=== PATIENT | female | born 1960 | race Two or more races ===

== ENCOUNTER 2019-12-25 11:01 | Outpatient (REF) | payer OTHER, SELFPAY ==
[2019-12-25 14:10] LABS: Estimated Average Glucose 237 mg/dL; Hemoglobin A1c % 9.9 %
[2019-12-25 14:48] LABS: Alanine Aminotransferase 23 U/L (0-31); Anion Gap 14 (12-20); Aspartate Amino Transferase 19 U/L (5-31); Blood Urea Nitrogen 9 mg/dL (9-16); Calcium 9.4 mg/dL (8.4-10.2); Carbon Dioxide 29 mmol/L (22-29); Chloride 101 mmol/L (96-108); Cholesterol 190 mg/dL; Estimated Glomerular Filt Rate > 60; Glucose Fasting 94 mg/dL (60-99); HDL Cholesterol 39 mg/dL; LDL Cholesterol Calculated 106 mg/dl; Potassium 4.1 mmol/l (3.3-5.1); Sodium 140 mmol/L (135-145); Triglycerides 229 mg/dL
[2019-12-25 14:52] LABS: Vitamin D 25-OH Total 38.4 ng/mL (>30)
== END 2019-12-25 11:02 | disposition home or self-care (01) ==
LOC: HO.HMGCLDS 11:01
PROVIDERS: PCP Internal Medicine; Visit Provider Internal Medicine
DX: K21.9 Gastro-esophageal reflux disease without esophagitis (principal); E11.65 Type 2 diabetes mellitus with hyperglycemia; E78.5 Hyperlipidemia, unspecified; E55.9 Vitamin D deficiency, unspecified; Z79.4 Long term (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 of insulin
CPT/HCPCS: 80048; 80061; 82306; 83036; 84450; 84460

== ENCOUNTER 2020-03-19 13:59 | Outpatient (REF) | payer OTHER, SELFPAY ==
--- NOTE | ~2020-03-19 | MM_ITS ---
EXAMINATION: MM SCREENING DIGITAL BREAST TOMOSYNTHESIS, BILATERAL CLINICAL INFORMATION: Screening. Asymptomatic. Remote history breast surgery (1989 or 1990). No family history breast cancer. The lifetime risk of breast cancer based on the Tyrer-Cuzick Model is 10%. COMPARISON: Mammography: 09/11/2018, 07/03/2016, 06/01/2015 TECHNIQUE: Digital breast tomosynthesis is performed in both the craniocaudal and mediolateral oblique views along with computer-aided detection (CAD). Synthesized 2D images are generated from the tomosynthesis. FINDINGS: There are scattered areas of fibroglandular density (ACR BI-RADS breast composition Category b). There are no significant masses, abnormal calcifications, or other abnormalities. The axilla and skin contours are unremarkable. MM/MM tomosynthesis screening BI IMPRESSION: No mammographic evidence of malignancy. ASSESSMENT: BI-RADS 1: Negative RECOMMENDATION: Routine annual mammography screening. This patient's information was entered into a reminder system with a target due date for their next mammogram.
== END 2020-03-19 14:00 | disposition home or self-care (01) ==
LOC: HO.MAMMO 13:59
PROVIDERS: PCP Internal Medicine; Visit Provider Internal Medicine
DX: Z12.31 Encounter for screening mammogram for malignant neoplasm of breast (principal)
CPT/HCPCS: 77063; 77067

== ENCOUNTER 2020-04-08 11:26 | Outpatient (REF) | payer OTHER, SELFPAY ==
[2020-04-08 14:05] LABS: Estimated Average Glucose 240 mg/dL
[2020-04-08 14:35] LABS: Alanine Aminotransferase 20 U/L (0-31); Anion Gap 12 (12-20); Aspartate Amino Transferase 17 U/L (5-31); Blood Urea Nitrogen 9 mg/dL (9-16); Calcium 10.4 mg/dL (8.4-10.2); Carbon Dioxide 32 mmol/L (22-29); Chloride 99 mmol/L (96-108); Cholesterol 190 mg/dL; Estimated Glomerular Filt Rate > 60; Glucose Fasting 182 mg/dL (60-99); HDL Cholesterol 37 mg/dL; LDL Cholesterol Calculated 110 mg/dl; Potassium 4.3 mmol/L (3.3-5.1); Sodium 139 mmol/L (135-145); Triglycerides 217 mg/dL
[2020-04-08 14:56] LABS: Vitamin D 25-OH Total 43.1 ng/mL (>30)
[2020-04-08 15:30] LABS: Creatinine Urine 155.18 mg/dL; Microalbum/Creatinine Ratio Ur 66.3 ug/mg cr
== END 2020-04-08 11:27 | disposition home or self-care (01) ==
LOC: HO.HMGCLDS 11:26
PROVIDERS: PCP Internal Medicine; Visit Provider Internal Medicine
DX: E55.9 Vitamin D deficiency, unspecified (principal); E11.65 Type 2 diabetes mellitus with hyperglycemia; E78.2 Mixed hyperlipidemia; I10 Essential (primary) hypertension; Z78.0 Asymptomatic menopausal state; Z79.4 Long term (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 of insulin
CPT/HCPCS: 36415; 80048; 80061; 82043; 82306; 83036; 84450; 84460

== ENCOUNTER → 2020-06-10 12:21 | Outpatient (BNVA) | payer OTHER, SELFPAY | PROVIDERS: PCP Internal Medicine; Visit Provider Internal Medicine ==

== ENCOUNTER 2020-07-08 13:37 | Outpatient (REF) | payer OTHER, SELFPAY ==
[2020-07-08 16:34] LABS: Estimated Average Glucose 192 mg/dL; Hemoglobin A1c % 8.3 %
[2020-07-08 16:53] LABS: Alanine Aminotransferase 22 U/L (0-31); Albumin Level 4.3 g/dL (3.5-5.0); Alkaline Phosphatase 67 U/L (39-117); Anion Gap 13 (12-20); Aspartate Amino Transferase 15 U/L (5-31); Bilirubin Total 0.3 mg/dL (0.0-1.0); Blood Urea Nitrogen 10 mg/dL (9-16); Calcium 9.6 mg/dL (8.4-10.2); Carbon Dioxide 29 mmol/L (22-29); Chloride 102 mmol/L (96-108); Cholesterol 132 mg/dL; Estimated Glomerular Filt Rate > 60; Glucose Fasting 73 mg/dL (60-99); HDL Cholesterol 39 mg/dL; LDL Cholesterol Calculated 64 mg/dl; Phosphorus 3.7 mg/dL (2.7-4.5); Potassium 4.3 mmol/L (3.3-5.1); Sodium 140 mmol/L (135-145); Total Protein 7.4 g/dL (6.5-8.0); Triglycerides 146 mg/dL
[2020-07-08 17:07] LABS: Free T4 (Free Thyroxine) 0.79 ng/dL (0.71-1.85)
[2020-07-08 17:09] LABS: Thyroid Stimulating Hormone 2.05 uIU/mL (0.32-4.0); Vitamin D 25-OH Total 31.6 ng/mL (>30)
[2020-07-09 09:31] LABS: Calcium, Ionized 5.1 mg/dL (4.8-5.6)
[2020-07-09 22:06] LABS: Prot Elec - Albumin 4.1 g/dL (3.8-4.8); Prot Elec - Alpha1 0.3 g/dL (0.2-0.3); Prot Elec - Alpha2 0.7 g/dL (0.5-0.9); Prot Elec - Beta 1 0.5 g/dL (0.4-0.6); Prot Elec - Beta 2 0.4 g/dL (0.2-0.5); Prot Elec - Gamma 1.2 g/dL (0.8-1.7); Prot Elec - Total Protein 7.2 g/dL (6.1-8.1)
[2020-07-10 10:36] LABS: Calcium (PTHI) 9.4 mg/dL (8.6-10.4); PTHI 45 pg/mL (14-64)
== END 2020-07-08 13:38 | disposition home or self-care (01) ==
LOC: HO.HMGCLDS 13:37
PROVIDERS: PCP Internal Medicine; Visit Provider Internal Medicine
DX: E83.52 Hypercalcemia (principal); I10 Essential (primary) hypertension; E11.65 Type 2 diabetes mellitus with hyperglycemia; E78.2 Mixed hyperlipidemia; E55.9 Vitamin D deficiency, unspecified; Z79.4 Long term (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 of insulin; Z78.0 Asymptomatic menopausal state
CPT/HCPCS: 36415; 80048; 80053; 80061; 82306; 82330; 83036; 83970; 84100; 84155; 84165; 84439; 84443

== ENCOUNTER → 2020-08-26 14:27 | Outpatient (BNVA) | payer OTHER, SELFPAY | PROVIDERS: PCP Internal Medicine; Visit Provider Internal Medicine | DX: E11.65 Type 2 diabetes mellitus with hyperglycemia (principal); E78.5 Hyperlipidemia, unspecified; E55.9 Vitamin D deficiency, unspecified; E83.52 Hypercalcemia; I10 Essential (primary) hypertension; Z79.4 Long term (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 of insulin | CPT/HCPCS: 82947; 99212 ==

== ENCOUNTER 2020-09-15 12:59 | Outpatient (REF) | payer OTHER, SELFPAY ==
--- NOTE | ~2020-09-15 | US_ITS ---
EXAMINATION: US THYROID CLINICAL INFORMATION: Nontoxic goiter. COMPARISON: None TECHNIQUE: Linear transducer grayscale and color Doppler examination with attention to the region of the thyroid. FINDINGS: SIZE: Measurements of the thyroid lobes and nodules are given in sagittal, anteroposterior and transverse dimensions respectively. Right Thyroid Lobe: 3.58 x 1.24 x 1.68 cm, volume 3.91 mL. Parenchyma: The gland echotexture is homogeneous. Thyroid vascularity is normal. Left Thyroid Lobe: 3.18 x 0.96 x 1.42 cm, volume 2.27 mL. Parenchyma: The gland echotexture is homogeneous. Thyroid vascularity is normal. Isthmus: 0.36 cm in maximum AP dimension. Estimated total number of nodules greater than or equal to 1 cm: 0. Vice Chancellor nodules are described as follows: There are no nodules visualized. NODES: No lymphadenopathy is seen in the tissue surrounding the thyroid gland. US/US thyroid IMPRESSION: The thyroid gland is normal in size and is homogeneous in texture. No focal lesion is seen. ACR TI-RADS RECOMMENDATION REFERENCE: Ultrasound-guided fine-needle aspiration, followup ultrasound, no further follow up. * TR1 (0 point) and TR 2 (2 points): No FNA or follow up * TR3 (3 points): FNA if more than or equal to 2.5 cm in maximum dimension, followup ultrasound in 1, 3 and 5 years if 1.5 to 2.4 cm in maximum dimension. * TR4 (4-6 points): FNA if more than or equal to 1.5 cm in maximum dimension, followup ultrasound in 1, 2, 3 and 5 years if 1 to 1.4 cm in maximum dimension. * TR5 (more than or equal to 7 points): FNA if more than or equal to 1 cm in maximum dimension, followup ultrasound every year for 5 years if 0.5 to 0.9 cm in maximum dimension. * TR3, TR4 or TR5 nodules that are below the size threshold for follow up receive no follow up.
== END 2020-09-15 13:00 | disposition home or self-care (01) ==
LOC: HO.HMGCX 12:59
PROVIDERS: Visit Provider Internal Medicine
DX: E04.9 Nontoxic goiter, unspecified (principal)
CPT/HCPCS: 76536

== ENCOUNTER 2020-10-13 13:15 | Outpatient (REF) | payer MEDICAID, SELFPAY ==
[2020-10-13 14:24] LABS: Estimated Average Glucose 169 mg/dL; Hemoglobin A1c % 7.5 %
[2020-10-13 14:37] LABS: Alanine Aminotransferase 20 U/L (0-31); Anion Gap 11 (12-20); Aspartate Amino Transferase 17 U/L (5-31); Blood Urea Nitrogen 10 mg/dL (9-16); Calcium 9.9 mg/dL (8.4-10.2); Carbon Dioxide 29 mmol/L (22-29); Chloride 104 mmol/L (96-108); Cholesterol 131 mg/dL; Estimated Glomerular Filt Rate > 60; Glucose Fasting 98 mg/dL (60-99); HDL Cholesterol 38 mg/dL; LDL Cholesterol Calculated 74 mg/dl; Potassium 4.1 mmol/L (3.3-5.1); Sodium 140 mmol/L (135-145); Triglycerides 99 mg/dL
[2020-10-13 14:58] LABS: Vitamin D 25-OH Total 32.5 ng/mL (>30)
== END 2020-10-13 13:16 | disposition home or self-care (01) ==
LOC: HO.HMGCLDS 13:15
PROVIDERS: PCP Internal Medicine; Visit Provider Internal Medicine
DX: E11.29 Type 2 diabetes mellitus with other diabetic kidney complication (principal); E11.319 Type 2 diabetes mellitus with unspecified diabetic retinopathy without macular edema; E11.65 Type 2 diabetes mellitus with hyperglycemia; E78.2 Mixed hyperlipidemia; I10 Essential (primary) hypertension; R80.9 Proteinuria, unspecified; E55.9 Vitamin D deficiency, unspecified; Z78.0 Asymptomatic menopausal state; Z79.4 Long term (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 of insulin
CPT/HCPCS: 36415; 80048; 80061; 82306; 83036; 84450; 84460

== ENCOUNTER 2020-12-30 08:10 | Outpatient (REF) | payer OTHER, SELFPAY ==
[2020-12-30 12:10] LABS: Estimated Average Glucose 180 mg/dL; Hemoglobin A1c % 7.9 %
[2020-12-30 13:04] LABS: Creatinine Urine 72.93 mg/dL; Microalbum/Creatinine Ratio Ur 16.4 ug/mg cr
[2020-12-30 13:06] LABS: Alanine Aminotransferase 17 U/L (0-31); Albumin Level 4.4 g/dL (3.5-5.0); Alkaline Phosphatase 86 U/L (39-117); Anion Gap 14 (12-20); Aspartate Amino Transferase 14 U/L (5-31); Bilirubin Total 0.3 mg/dL (0.0-1.0); Blood Urea Nitrogen 14 mg/dL (9-16); Calcium 9.7 mg/dL (8.4-10.2); Carbon Dioxide 26 mmol/L (22-29); Chloride 105 mmol/L (96-108); Cholesterol 104 mg/dL; Estimated Glomerular Filt Rate > 60; Glucose Random 112 mg/dL (60-115); HDL Cholesterol 35 mg/dL; LDL Cholesterol Calculated 51 mg/dl; Potassium 4.1 mmol/L (3.3-5.1); Sodium 141 mmol/L (135-145); Total Protein 7.4 g/dL (6.5-8.0); Triglycerides 93 mg/dL
[2020-12-31 10:17] LABS: LDL Cholesterol Direct 44 mg/dL (<100)
== END 2020-12-30 08:11 | disposition home or self-care (01) ==
LOC: HO.HMGCLDS 08:10
PROVIDERS: PCP Internal Medicine; Visit Provider Internal Medicine
DX: E11.65 Type 2 diabetes mellitus with hyperglycemia (principal); E11.319 Type 2 diabetes mellitus with unspecified diabetic retinopathy without macular edema; E11.40 Type 2 diabetes mellitus with diabetic neuropathy, unspecified; E11.21 Type 2 diabetes mellitus with diabetic nephropathy; E78.5 Hyperlipidemia, unspecified; E55.9 Vitamin D deficiency, unspecified; E83.52 Hypercalcemia; I10 Essential (primary) hypertension; Z79.899 Other long term (current) drug therapy; Z79.4 Long term (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 of insulin
CPT/HCPCS: 36415; 80053; 80061; 82043; 82947; 83036; 83721; 99212

== ENCOUNTER 2021-03-24 00:56 | Emergency (ER) | payer OTHER, SELFPAY ==
--- NOTE | ~2021-03-24 | XR_ITS ---
EXAMINATION: XR CHEST CLINICAL INFORMATION: Chest pain COMPARISON: None TECHNIQUE: Frontal view of the chest was obtained. FINDINGS: The heart and pulmonary vessels appear unremarkable. No infiltrates or effusions are seen. There is a rounded opacity seen at the right apex which may be bony however a 1 cm sized pulmonary nodule cannot be excluded. This overlies the inferior aspect of the right first rib as well as the posterior fourth rib. XR/XR chest 1V IMPRESSION: Right apical nodular density. I suspect that this is not a true pulmonary nodule but this cannot be excluded. An elective CT scan of the chest could be performed for further evaluation
[2021-03-24 00:57] VITALS: BP 148/79; PULSE 91; RESP 16; TEMP 36.7; O2SAT 97; BMI 29.6
[2021-03-24 01:16] LABS: Appearance Urine CLEAR; Color Urine YELLOW; Glucose Urine UA NEG (NEG); Leukocyte Esterase Urine NEG (NEG); Nitrite Urine NEG (NEG); Urine Blood NEG (NEG); Urine Ketones NEG (NEG); Urine Protein NEG (NEG-TRACE)
--- NOTE | 2021-03-24 01:22 | ED_ITS ---
HPI - Abdominal Pain General Chief Complaint: Abdominal Pain Stated Complaint: R side of body pain x2 wks Time Seen by Provider: 03/24/21 01:06 Source: patient Mode of arrival: ambulatory Limitations: no limitations History of Present Illness MD elicited complaint: other (R posterior back pain) Pertinent past history: none Onset (ago): week(s) (2) Pain Consistency: constant Location: other (R posterior back paraspinal) Severity: moderate Quality: sharp Radiation: none Migration to: no migration Exacerbating factors: other (movement, deep breathing) Relieving factors: nothing Associated symptoms: other (hurts to breathe) Related Data Home Medications Medication Instructions Recorded Confirmed fluocinonide 0.05 % topical TOPICAL 12/26/19 12/30/20 ointment Previous Rx's Medication Instructions Recorded atorvastatin 40 mg tablet 40 mg PO DAILY 30 Days #30 tab 06/10/20 flash glucose scanning reader #1 ea 06/10/20 (FreeStyle [place] 2 [place]) flash glucose sensor (FreeStyle #2 ea 06/10/20 Kwesi 2 Sensor) lisinopril 2.5 mg tablet 2.5 mg PO DAILY 30 Days #30 tab 06/10/20 insulin glargine 100 unit/mL (3 44 unit (0.44 mL) SUBCUT QPM #15 09/13/20 mL) subcutaneous pen (Lantus cap Solostar U-100 Insulin) metformin 1,000 mg tablet 1,000 mg PO BID #60 tab 11/10/20 insulin lispro 100 unit/mL See Rx Instructions SUBCUT TID #15 11/30/20 subcutaneous pen (Humalog KwikPen ml (U-100) Insulin) ibuprofen 800 mg tablet 800 mg PO Q8H PRN #30 tab 12/01/20 blood sugar diagnostic (FreeStyle #100 ea 12/03/20 Lite Strips) pen needle, diabetic 32 gauge x See Rx Instructions .ROUTE QID 01/11/21 (UltiCare Pen Needle) #120 ea ketoconazole 2 % topical cream 1 appl TOPICAL DAILY 10 Days #60 g 02/08/21 omeprazole 40 mg capsule,delayed 40 mg PO DAILY #90 ea 02/23/21 release blood-glucose meter (FreeStyle #1 ea 03/14/21 [place] Lite) cyclobenzaprine 10 mg tablet 10 mg PO TID PRN #14 tab 03/24/21 lidocaine 5 % topical patch 1 patch TOPICAL DAILY #30 ea 03/24/21 Allergies Allergy/AdvReac Type Severity Reaction Status Date / Time No Known Allergies Allergy Verified 12/30/20 15:08 Review of Systems Review of Systems Constitutional : No Weight loss, No Fever, No Chills, ENT/Mouth : No Hearing loss, No Ear Pain, No Nasal Congestion, No Sinus Pain, No Hoarseness, No sore throat, No Rhinorrhea, No Swallowing Difficulty Cardiovascular : No Chest Pain, No SOB Respiratory : No Cough, No Dyspnea Gastrointestinal : No Nausea, No Vomiting, No Diarrhea, No abdominal Pain, No Hematochezia, No Melena Genitourinary : No Dysuria, No Urinary Frequency, No Hematuria, No Urinary Incontinence, Musculoskeletal : positive back pain Skin : No Skin Lesions, No rash Neuro : No Weakness, No Numbness, No Paresthesias, no loss of bowel or bladder incontinence, no saddle anesthesia All other systems reviewed and are negative Physical Exam Vital Signs: Vital Signs: Last Vital Signs Temp 98.2 F 03/24/21 02:09 Pulse 82 03/24/21 02:09 Resp 18 03/24/21 02:09 BP 118/59 L 03/24/21 02:09 Pulse Ox 96 03/24/21 02:09 BMI result Body Mass Index 29.6 Appearance: Alert. Oriented X3. No acute distress. Eyes: Pupils equal, round and reactive to light. ENT: Pharynx normal. Neck: Normal inspection. Neck supple. CVS: Normal heart rate and rhythm. Pulses normal. Respiratory: No respiratory distress. Breath sounds normal. Abdomen: Soft and nontender. Back: ttp along R mid thoracic paraspinal muscles Skin: Skin warm and dry. Normal skin color. Normal skin turgor. Extremities: No lower extremity edema. No calf ttp Neuro: Oriented X 3. No motor deficit. No sensory deficit. Course Course Course Narrative: stable for DC at this time negative ddimer nonischemic EKG MDM - Abdominal Pain MDM Narrative Medical decision making narrative: 61 yo female with hx of HTN, HLD, DM, lumbago, GERD, here with c/o R thoracic back pain hurts to move and get up but also hurts to breathe at this time no known trauma will obtain labs, EKG, CXR, ddimer to r/o PE though low probability. She is NV intact distally no rash noted. Dispo per results and findings. Lab Data Result diagrams: 03/24/21 01:44 03/24/21 01:45 Labs: Lab Results 03/24/21 03/24/21 03/24/21 Range/Units 01:10 01:44 01:44 WBC 12.2 H (4.8-10.8) X10*3/uL RBC 4.10 L (4.20-5.50) X10*6/uL Hgb 10.0 L (12.0-16.0) g/dl Hct 32.9 L (37.0-47.0) % MCV 80.2 (80.0-98.0) fL MCH 24.4 L (27.0-33.0) pg MCHC 30.4 L (31.0-35.0) g/dl RDW 17.1 H (11.0-16.0) % Plt Count 360 (160-400) X10*3/uL MPV 8.8 L (9.4-12.3) fL Immature Gran % (Auto) 0.3 (0.0-0.4) % Neut % (Auto) 62.0 (45-73) % Lymph % (Auto) 30.4 (20-40) % [place] % (Auto) 6.3 (2-11) % Eos % (Auto) 0.7 (0-4) % Baso % (Auto) 0.3 (0-2) % Lymph # (Auto) 3.7 (1.2-4.9) X10*3/uL [place] # (Auto) 0.8 (0.1-1.2) X10*3/uL Eos # (Auto) 0.1 (0.0-0.4) X10*3/uL Baso # (Auto) 0.0 (0.0-0.2) X10*3/uL Abs Immat Gran (auto) 0.04 H (0.00-0.03) X10*3/uL Absolute Neuts (auto) 7.5 (2.0-8.3) x10*3/uL Absolute Nucleated RBC 0.000 (0.0-0.012) X10*3/uL Nucleated RBC % (auto) 0.0 (0.0-0.2) /100WBC D-Dimer High Sensitivty < 150 NG/ML Sodium (135-145) mmol/L Potassium (3.3-5.1) mmol/L Chloride (96-108) mmol/L Carbon Dioxide (22-29) mmol/L Anion Gap (12-20) BUN (9-16) mg/dL Creatinine (0.5-1.4) mg/dL Estim Creat Clear Calc Estimated GFR Random Glucose (60-115) mg/dL Calcium (8.4-10.2) mg/dL Urine Color YELLOW Urine Appearance CLEAR Urine pH 6.0 (5.0-8.0) Ur Specific [place] 1.020 (1.005-1.025) Urine Protein NEG (NEG-TRACE) MG/DL Urine Glucose (UA) NEG (NEG) MG/DL Urine Ketones NEG (NEG) MG/DL Urine Blood NEG (NEG) Urine Nitrite NEG (NEG) Ur Leukocyte Esterase NEG (NEG) 03/24/21 Range/Units 01:45 WBC (4.8-10.8) X10*3/uL RBC (4.20-5.50) X10*6/uL Hgb (12.0-16.0) g/dl Hct (37.0-47.0) % MCV (80.0-98.0) fL MCH (27.0-33.0) pg MCHC (31.0-35.0) g/dl RDW (11.0-16.0) % Plt Count (160-400) X10*3/uL MPV (9.4-12.3) fL Immature Gran % (Auto) (0.0-0.4) % Neut % (Auto) (45-73) % Lymph % (Auto) (20-40) % [place] % (Auto) (2-11) % Eos % (Auto) (0-4) % Baso % (Auto) (0-2) % Lymph # (Auto) (1.2-4.9) X10*3/uL [place] # (Auto) (0.1-1.2) X10*3/uL Eos # (Auto) (0.0-0.4) X10*3/uL Baso # (Auto) (0.0-0.2) X10*3/uL Abs Immat Gran (auto) (0.00-0.03) X10*3/uL Absolute Neuts (auto) (2.0-8.3) x10*3/uL Absolute Nucleated RBC (0.0-0.012) X10*3/uL Nucleated RBC % (auto) (0.0-0.2) /100WBC D-Dimer High Sensitivty NG/ML Sodium 140 (135-145) mmol/L Potassium 4.0 (3.3-5.1) mmol/L Chloride 104 (96-108) mmol/L Carbon Dioxide 27 (22-29) mmol/L Anion Gap 13 (12-20) BUN 18 H (9-16) mg/dL Creatinine 0.72 (0.5-1.4) mg/dL Estim Creat Clear Calc 95.5 Estimated GFR > 60 Random Glucose 106 (60-115) mg/dL Calcium 10.2 (8.4-10.2) mg/dL Urine Color Urine Appearance Urine pH (5.0-8.0) Ur Specific [place] (1.005-1.025) Urine Protein (NEG-TRACE) MG/DL Urine Glucose (UA) (NEG) MG/DL Urine Ketones (NEG) MG/DL Urine Blood (NEG) Urine Nitrite (NEG) Ur Leukocyte Esterase (NEG) ECG Data Attestation: I personally reviewed and interpreted this ECG as follows: ECG interpretation date: 03/24/21 ECG interpretation time: 01:48 Interpretation: Rate: 86 Rhythm: NSR [place]: normal Normal P waves. Normal ALFREDO. Normal QRS complex. ST T wave : no HERMINIO qTC: normal prior studies: no acute ischemia The study has been interpreted contemporaneously by me. . Discharge Plan Discharge Clinical Impression: Paraspinal muscle spasm Patient Disposition: Home, Self-Care Instructions: Muscle Spasm (ED) Additional Instructions: return to ED for any worsening symptoms or concerns IMPRESSION: Right apical nodular density. I suspect that this is not a true pulmonary nodule but this cannot be excluded. An elective CT scan of the chest could be performed for further evaluation Prescriptions: New cyclobenzaprine 10 mg tablet 10 mg PO TID PRN (Reason: muscle spasm) Qty: 14 0RF lidocaine 5 % adhesive patch,medicated 1 patch topical DAILY Qty: 30 0RF Rx Instructions: leave on most painful area for up to 12 hrs No Action Lantus Solostar U-100 Insulin 100 unit/mL (3 mL) insulin pen 44 unit subcut QPM Qty: 15 4RF Rx Instructions: send future refill request to Dr Hutchison who currently treats her DM metformin 1,000 mg tablet 1,000 mg PO BID Qty: 60 5RF insulin lispro [Humalog KwikPen Insulin] 100 unit/mL insulin pen See Rx Instructions subcut TID Qty: 15 4RF Rx Instructions: administer 12 units 3x per day before meals. ibuprofen 800 mg tablet 800 mg PO Q8H PRN (Reason: for pain) Qty: 30 0RF (DME) FreeStyle Lite Strips Strip See Rx Instructions .Route Qty: 100 11RF Rx Instructions: As directed to test blood sugar 3x/day pen needle, diabetic [UltiCare Pen Needle] 32 gauge x 5/32 needle See Rx Instructions .ROUTE QID Qty: 120 11RF Rx Instructions: use as directed QID , ac & HS 4 times a day; ketoconazole 2 % cream 1 appl topical DAILY 10 Days Qty: 60 0RF omeprazole 40 mg capsule,delayed release(DR/EC) 40 mg PO DAILY Qty: 90 0RF (DME) blood-glucose meter [FreeStyle [place] Lite] Kit See Rx Instructions .Route Qty: 1 0RF Rx Instructions: As directed to test blood sugar 3x/day fluocinonide 0.05 % ointment topical 0RF (DME) FreeStyle Kwesi 2 [place] Misc See Rx Instructions .ROUTE .MEDSUPPLY Qty: 1 0RF Rx Instructions: As directed (DME) FreeStyle Kwesi 2 Sensor Kit See Rx Instructions .ROUTE .MEDSUPPLY Qty: 2 11RF Rx Instructions: Once every 14 days lisinopril 2.5 mg tablet 2.5 mg PO DAILY 30 Days Qty: 30 11RF atorvastatin 40 mg tablet 40 mg PO DAILY 30 Days Qty: 30 11RF Referrals: Kim Reynoso MD [Primary Care Provider] - 2 days (your xray did have irregularity - outpatient chest CT scan though likely artifact (not real)) [facility] Past Medical History Attestation statement: The following information was validated with the patient. 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 Daughter No problems noted. Social History Social History Housing: House Alcohol intake: unknown Patient Tobacco Use Status: Never used Tobacco e-Cigarette/Vaping Use: Never Used Second Hand Smoke Exposure: No Use of substances other than those prescribed or required for medical reasons: No Patient : No Current occupational status: employed
--- NOTE | 2021-03-24 01:28 | ECG_ITS ---
Test Reason : Abdominal pain Blood Pressure : / mmHG Vent. Rate : 086 BPM Atrial Rate : 086 BPM P-R Int : 150 ms QRS Dur : 094 ms QT Int : 358 ms P-R-T Axes : 056 009 010 degrees QTc Int : 428 ms Normal sinus rhythm Cannot rule out Inferior infarct , age undetermined Abnormal ECG No previous ECGs available Referred By: Tonja Ribeiro Electronically Signed By:Jairon Hurd
[2021-03-24] MEDS: Lidocaine 4 % Patch ADH..PATCH 1 PATCH TRANSDERMA (01:47)
[2021-03-24 01:49] LABS: Basophils Percent Auto 0.3 % (0-2); Eosinophils Absolute Auto 0.1 X10*3/uL (0.0-0.4); Eosinophils Percent Auto 0.7 % (0-4); Hematocrit 32.9 % (37.0-47.0); Imm Gran Abs Auto 0.04 X10*3/uL (0.00-0.03); Imm Gran Pct Auto 0.3 % (0.0-0.4); Lymphocytes Absolute Auto 3.7 X10*3/uL (1.2-4.9); Lymphocytes Percent Auto 30.4 % (20-40); MANUAL DIFF FLAG NO; Mean Corpuscular HGB Conc 30.4 g/dl (31.0-35.0); Mean Corpuscular Hemoglobin 24.4 pg (27.0-33.0); Mean Corpuscular Volume 80.2 fL (80.0-98.0); Mean Platelet Volume 8.8 fL (9.4-12.3); Monocytes Absolute Auto 0.8 X10*3/uL (0.1-1.2); Monocytes Percent Auto 6.3 % (2-11); Neutrophils Absolute Auto 7.5 x10*3/uL (2.0-8.3); Platelet Count 360 X10*3/uL (160-400); Red Cell Distribution Width 17.1 % (11.0-16.0); White Blood Count 12.2 X10*3/uL (4.8-10.8)
[2021-03-24 02:00] LABS: D Dimer High Sensitivity < 150 NG/ML
[2021-03-24 02:04] LABS: Anion Gap 13 (12-20); Blood Urea Nitrogen 18 mg/dL (9-16); Calcium 10.2 mg/dL (8.4-10.2); Carbon Dioxide 27 mmol/L (22-29); Chloride 104 mmol/L (96-108); Creatinine Clr Calc Pharmacy 95.5; Estimated Glomerular Filt Rate > 60; Glucose Random 106 mg/dL (60-115); Sodium 140 mmol/L (135-145)
[2021-03-24 02:09] VITALS: BP 118/59; PULSE 82; RESP 18; TEMP 36.8; O2SAT 96
== END 2021-03-24 02:28 | disposition home or self-care (01) ==
LOC: HO.ED 02:16
PROVIDERS: Emergency Provider Emergency Medicine; PCP Internal Medicine
DX: R10.31 Right lower quadrant pain (principal); M54.50 Low back pain, unspecified; M62.838 Other muscle spasm; R07.81 Pleurodynia; Z79.899 Other long term (current) drug therapy
CPT/HCPCS: 36415; 71045; 80048; 81003; 85025; 85379; 93005; 99283; 99284

== ENCOUNTER 2021-04-20 12:31 | Outpatient (REF) | payer OTHER, SELFPAY ==
[2021-04-20 14:09] LABS: Estimated Average Glucose 180 mg/dL; Hemoglobin A1c % 7.9 %
[2021-04-20 14:21] LABS: Alanine Aminotransferase 24 U/L (0-31); Albumin Level 4.3 g/dL (3.5-5.0); Alkaline Phosphatase 67 U/L (39-117); Anion Gap 12 (12-20); Aspartate Amino Transferase 22 U/L (5-31); Bilirubin Total 0.4 mg/dL (0.0-1.0); Blood Urea Nitrogen 10 mg/dL (9-16); Carbon Dioxide 29 mmol/L (22-29); Chloride 105 mmol/L (96-108); Estimated Glomerular Filt Rate > 60; Glucose Random 88 mg/dL (60-115); Potassium 4.3 mmol/L (3.3-5.1); Sodium 142 mmol/L (135-145); Total Protein 7.5 g/dL (6.5-8.0)
== END 2021-04-20 12:32 | disposition home or self-care (01) ==
LOC: HO.HMGCLDS 12:31
PROVIDERS: PCP Internal Medicine; Visit Provider Internal Medicine
DX: E11.65 Type 2 diabetes mellitus with hyperglycemia (principal); Z79.4 Long term (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 of insulin
CPT/HCPCS: 36415; 80053; 83036

== ENCOUNTER → 2021-04-21 14:06 | Outpatient (BNVA) | payer OTHER, SELFPAY | PROVIDERS: PCP Internal Medicine; Visit Provider Nurse Practitioner Gerontology | DX: E11.65 Type 2 diabetes mellitus with hyperglycemia (principal); E78.5 Hyperlipidemia, unspecified; I10 Essential (primary) hypertension; E66.09 Other obesity due to excess calories; Z68.31 Body mass index [BMI] 31.0-31.9, adult; Z79.4 Long term (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 of insulin | CPT/HCPCS: 82947; 99212 ==

== ENCOUNTER 2021-05-19 07:48 | Outpatient (REF) | payer OTHER, SELFPAY ==
--- NOTE | ~2021-05-19 | MM_ITS ---
EXAMINATION: MM SCREENING DIGITAL BREAST TOMOSYNTHESIS, BILATERAL CLINICAL INFORMATION: Screening. Asymptomatic. Status post previous breast surgery. The lifetime risk of breast cancer based on the Tyrer-Cuzick Model is 5.7%. COMPARISON: Mammography: March 19, 2020 and studies dating back to April 12, 2013 TECHNIQUE: Digital breast tomosynthesis is performed in both the craniocaudal and mediolateral oblique views along with computer-aided detection (CAD). Synthesized 2D images are generated from the tomosynthesis. FINDINGS: There are scattered areas of fibroglandular density (ACR BI-RADS breast composition Category b). There are no new significant masses, abnormal calcifications, or other abnormalities. Region of stable architectural distortion about the superior aspect of the right breast is present and likely related to previous surgery. MM/MM tomosynthesis screening BI IMPRESSION: There are no significant changes from prior study. ASSESSMENT: BI-RADS 2: Benign RECOMMENDATION: Routine annual mammography screening. This patient's information was entered into a reminder system with a target due date for their next mammogram.
== END 2021-05-19 07:49 | disposition home or self-care (01) ==
LOC: HO.MAMMO 07:48
PROVIDERS: PCP Internal Medicine; Visit Provider Internal Medicine
DX: Z12.31 Encounter for screening mammogram for malignant neoplasm of breast (principal)
CPT/HCPCS: 77063; 77067

== ENCOUNTER 2021-07-21 08:37 | Outpatient (REF) | payer OTHER, SELFPAY ==
[2021-07-21 11:58] LABS: Creatinine Urine 27.21 mg/dL
== END 2021-07-21 08:38 | disposition home or self-care (01) ==
LOC: HO.HMGCLDS 08:37
PROVIDERS: Visit Provider Internal Medicine
DX: Z13.89 Encounter for screening for other disorder (principal)

== ENCOUNTER 2022-05-11 10:12 | Outpatient (REF) | payer OTHER, SELFPAY ==
[2022-05-11 11:12] LABS: MANUAL DIFF FLAG NO
[2022-05-11 11:23] LABS: Basophils Absolute Auto 0.1 X10*3/uL (0.0-0.2); Basophils Percent Auto 0.4 % (0-2); Eosinophils Absolute Auto 0.1 X10*3/uL (0.0-0.4); Eosinophils Percent Auto 0.5 % (0-4); Hematocrit 34.6 % (37.0-47.0); Hemoglobin 10.1 g/dl (12.0-16.0); Imm Gran Abs Auto 0.05 X10*3/uL (0.00-0.03); Imm Gran Pct Auto 0.4 % (0.0-0.4); Lymphocytes Percent Auto 16.3 % (20-40); Mean Corpuscular HGB Conc 29.2 g/dl (31.0-35.0); Mean Corpuscular Hemoglobin 22.9 pg (27.0-33.0); Mean Corpuscular Volume 78.5 fL (80.0-98.0); Mean Platelet Volume 9.4 fL (9.4-12.3); Monocytes Absolute Auto 0.6 X10*3/uL (0.1-1.2); Monocytes Percent Auto 4.9 % (2-11); Neutrophils Absolute Auto 9.3 x10*3/uL (2.0-8.3); Neutrophils Percent Auto 77.5 % (45-73); Platelet Count 403 X10*3/uL (160-400); Red Blood Count 4.41 X10*6/uL (4.20-5.50); Red Cell Distribution Width 18.6 % (11.0-16.0)
[2022-05-11 11:58] LABS: Alanine Aminotransferase 14 U/L (0-31); Anion Gap 16 (12-20); Aspartate Amino Transferase 11 U/L (5-31); Blood Urea Nitrogen 11 mg/dL (9-16); Calcium 9.5 mg/dL (8.4-10.2); Carbon Dioxide 27 mmol/L (22-29); Chloride 105 mmol/L (96-108); Cholesterol 120 mg/dL; Estimated Glomerular Filt Rate > 60; Glucose Fasting 72 mg/dL (60-99); HDL Cholesterol 33 mg/dL; LDL Cholesterol Calculated 58 mg/dl; Potassium 3.8 mmol/L (3.3-5.1); Sodium 144 mmol/L (135-145); Triglycerides 146 mg/dL
[2022-05-11 12:01] LABS: Vitamin D 25-OH Total 18.1 ng/mL (>30)
[2022-05-11 12:04] LABS: Creatinine Urine 196.07 mg/dL; Microalbum/Creatinine Ratio Ur 21.9 ug/mg cr
== END 2022-05-11 10:13 | disposition home or self-care (01) ==
LOC: HO.HMGCLDS 10:12
PROVIDERS: PCP Internal Medicine; Visit Provider Internal Medicine
DX: E78.5 Hyperlipidemia, unspecified (principal); I10 Essential (primary) hypertension; E11.65 Type 2 diabetes mellitus with hyperglycemia; E66.09 Other obesity due to excess calories; Z68.31 Body mass index [BMI] 31.0-31.9, adult; Z78.0 Asymptomatic menopausal state; Z79.4 Long term (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 of insulin
CPT/HCPCS: 36415; 80048; 80061; 82043; 82306; 84450; 84460; 85025

== ENCOUNTER 2022-06-29 10:44 | Outpatient (REF) | payer OTHER, SELFPAY ==
--- NOTE | ~2022-06-29 | MM_ITS ---
EXAMINATION: MM SCREENING DIGITAL BREAST TOMOSYNTHESIS, BILATERAL CLINICAL INFORMATION: Screening. Asymptomatic. The lifetime risk of breast cancer based on the Tyrer-Cuzick Model is 6%. COMPARISON: Mammography: May 19, 2021 and studies dating back to June 01, 2015 TECHNIQUE: Digital breast tomosynthesis is performed in both the craniocaudal and mediolateral oblique views along with computer-aided detection (CAD). Synthesized 2D images are generated from the tomosynthesis. FINDINGS: There are scattered areas of fibroglandular density (ACR BI-RADS breast composition Category b). There are no significant masses, abnormal calcifications, or other abnormalities. MM/MM tomosynthesis screening BI IMPRESSION: No significant changes from prior exam. ASSESSMENT: BI-RADS 1: Negative RECOMMENDATION: Routine annual mammography screening. This patient's information was entered into a reminder system with a target due date for their next mammogram.
== END 2022-06-29 10:45 | disposition home or self-care (01) ==
LOC: HO.MAMMO 10:44
PROVIDERS: PCP Internal Medicine; Visit Provider Internal Medicine
DX: Z12.31 Encounter for screening mammogram for malignant neoplasm of breast (principal)
CPT/HCPCS: 77063; 77067

== ENCOUNTER 2022-07-26 15:05 | Outpatient (REF) | payer OTHER, SELFPAY ==
[2022-07-26 17:15] LABS: Estimated Average Glucose 186 mg/dL; Hemoglobin A1c % 8.1 %
[2022-07-26 17:23] LABS: Alanine Aminotransferase 16 U/L (0-31); Anion Gap 12 (12-20); Aspartate Amino Transferase 16 U/L (5-31); Blood Urea Nitrogen 14 mg/dL (9-16); Calcium 9.8 mg/dL (8.4-10.2); Carbon Dioxide 30 mmol/L (22-29); Chloride 103 mmol/L (96-108); Cholesterol 110 mg/dL; Estimated Glomerular Filt Rate > 60; Glucose Fasting 81 mg/dL (60-99); HDL Cholesterol 36 mg/dL; LDL Cholesterol Calculated 56 mg/dl; Potassium 3.6 mmol/L (3.3-5.1); Sodium 141 mmol/L (135-145); Triglycerides 94 mg/dL
== END 2022-07-26 15:06 | disposition home or self-care (01) ==
LOC: HO.HMGCLDS 15:05
PROVIDERS: PCP Internal Medicine; Visit Provider Internal Medicine
DX: E11.29 Type 2 diabetes mellitus with other diabetic kidney complication (principal); E11.319 Type 2 diabetes mellitus with unspecified diabetic retinopathy without macular edema; E11.65 Type 2 diabetes mellitus with hyperglycemia; E66.09 Other obesity due to excess calories; Z68.31 Body mass index [BMI] 31.0-31.9, adult; E78.5 Hyperlipidemia, unspecified; I10 Essential (primary) hypertension; R80.9 Proteinuria, unspecified; Z79.4 Long term (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 of insulin
CPT/HCPCS: 36415; 80048; 80061; 83036; 84450; 84460

== ENCOUNTER 2022-08-09 13:26 | Outpatient (REF) | payer OTHER, SELFPAY ==
[2022-08-09 18:17] LABS: Creatinine Urine 116.06 mg/dL; Microalbum/Creatinine Ratio Ur 23.2 ug/mg cr
== END 2022-08-09 13:27 | disposition home or self-care (01) ==
LOC: HO.HMGCLNP 13:26
PROVIDERS: PCP Internal Medicine; Visit Provider Internal Medicine
DX: E11.29 Type 2 diabetes mellitus with other diabetic kidney complication (principal); E11.65 Type 2 diabetes mellitus with hyperglycemia; E11.319 Type 2 diabetes mellitus with unspecified diabetic retinopathy without macular edema; E66.09 Other obesity due to excess calories; E78.5 Hyperlipidemia, unspecified; I10 Essential (primary) hypertension; R80.9 Proteinuria, unspecified; Z79.4 Long term (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 of insulin; Z68.31 Body mass index [BMI] 31.0-31.9, adult
CPT/HCPCS: 82043

== ENCOUNTER 2022-10-25 10:28 | Outpatient (REF) | payer OTHER, SELFPAY ==
[2022-10-25 13:39] LABS: Estimated Average Glucose 180 mg/dL; Hemoglobin A1c % 7.9 % (<6.0)
[2022-10-25 13:45] LABS: Alanine Aminotransferase 14 U/L (0-31); Anion Gap 13 (12-20); Aspartate Amino Transferase 15 U/L (5-31); Blood Urea Nitrogen 12 mg/dL (9-16); Calcium 9.7 mg/dL (8.4-10.2); Carbon Dioxide 28 mmol/L (22-29); Chloride 104 mmol/L (96-108); Cholesterol 112 mg/dL (<200); Estimated Glomerular Filt Rate > 60; Glucose Fasting 147 mg/dL (60-99); HDL Cholesterol 36 mg/dL (>40); LDL Cholesterol Calculated 61 mg/dL (<100); Sodium 141 mmol/L (135-145); Triglycerides 78 mg/dL (<150)
== END 2022-10-25 10:29 | disposition home or self-care (01) ==
LOC: HO.HMGCLDS 10:28
PROVIDERS: PCP Internal Medicine; Visit Provider Internal Medicine
DX: E11.319 Type 2 diabetes mellitus with unspecified diabetic retinopathy without macular edema (principal); E11.29 Type 2 diabetes mellitus with other diabetic kidney complication; R80.9 Proteinuria, unspecified; Z79.4 Long term (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 of insulin
CPT/HCPCS: 36415; 80048; 80061; 83036; 84450; 84460

== ENCOUNTER 2022-11-01 13:30 | Outpatient (AMB) | payer OTHER, SELFPAY ==
--- NOTE | 2022-11-01 14:08 | A.OFFPC_ITS ---
Vital Signs 11/01/22 14:15 Height 5 ft 8 in Weight 203 lb BMI 30.9 BP 120/70 Blood Pressure Location Rt brachial Position Sitting Pulse 79 Pulse Source Pulse Oximeter Pulse Oximetry (%) 97 Oxygen Delivery Method Room Air Intake Visit Reasons: f/u labs DM Intake Note: Pt is here today for her DM f/u Allergies No Known Allergies Allergy (Verified 11/06/22 02:47) Medication List - Last Reconciled 11/01/22 by Kim Reynoso MD atorvastatin 40 mg PO DAILY blood sugar diagnostic (FreeStyle Lite Strips) As directed to test blood sugar 3x/day blood-glucose meter (FreeStyle [place] Lite kit) As directed to test blood sugar 3x/day cyclosporine 0.05% (Restasis) drps ophthalmic (eye) ONCE dulaglutide (Trulicity) 0.75 mg (0.5 mL) subcut QWEEK 1 month fluocinonide 0.05% topical ibuprofen 800 mg PO Q8H PRN insulin lispro 12 units (0.12 mL) subcut TID NS ketoconazole 2% 1 appl topical DAILY 10 days Lantus Solostar U-100 Insulin (insulin glargine) 44 units (0.44 mL) subcut QPM NS lidocaine 5% 1 patch topical DAILY lisinopril 2.5 mg PO DAILY metformin 1,000 mg PO BID omeprazole 40 mg PO DAILY pen needle, diabetic (UltiCare Pen Needle) use as directed QID , ac & HS 4 times a day; Tobacco use date assessed: 11/01/22 Dental Screening Dental Screen Date: 11/01/22 Did you have a dental visit in the last 12 months?: Yes Did you have a dental problem in the last 6 months where you did not have access to dental care?: No Was dental information given to patient?: Patient has dentist HPI f/u labs DM HPI Details 62-year-old lady here today for follow-u p on her diabetes mellitus. She is taking Trulicity 0.75 mg and once a week, in addition to insulin lispro 12 units 3 times a day and Lantus Solostar 44 units at bedtime as well as metformin a1000 mg 1 tablet twice a day. She has been trying to adhere to recommended diet, has occasional each eats, but has been staying active. 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 Daughter No problems noted. Social History Housing: House Alcohol intake: current Alcohol intake frequency: holidays/special occasions only Alcohol type: wine Patient Tobacco Use Status: Never used Tobacco e-Cigarette/Vaping Use: Never Used Second Hand Smoke Exposure: No Current occupational status: employed Cognitive needs: No Hearing needs: No Vision needs: Yes Questionnaire Thrive Questionnaire Date Thrive assessed: 08/09/22 [place]-7 AMB Questionnaire K[place]-7 Date [place] - 7 assessed: 08/09/22 Source: Developed by Drs. Shankar Childress, Ruth Blank, Augustin Melara and colleagues, with an educational michelle from [employer]. 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 [place]) ENT Denies headache(s) and Denies sore throat Card Denies palpitations and Denies dyspnea Resp Denies cough and Denies dyspnea GI Denies constipation and Denies diarrhea Denies urinary frequency and Denies dysuria Musc Denies muscle cramps, Denies muscle weakness, Denies numbness and Denies tingling Skin/Breast Denies breast swelling, Denies breast skin changes, Denies breast pain, Denies breast mass and Denies rash Neuro Denies burning sensations, Denies headache(s), Denies numbness, Denies tingling and Denies paresthesias Psych Denies depression Endo Denies fatigue, Denies polydipsia, Denies polyuria and Denies palpitations Radames/Lymph Reports no additional complaints Aller/Immun Reports no additional complaints Physical exam (Primary Care) Vital Signs: Last Vital Signs Pulse 79 11/01/22 14:15 BP 120/70 11/01/22 14:15 Pulse Ox 97 11/01/22 14:15 Oxygen Delivery Method Room Air 11/01/22 14:15 BMI result Body Mass Index 30.9 Tobacco/Smoking Status: Tobacco use Status Tobacco use date assessed 11/01/22 11/01/22 14:11 Patient Tobacco Use Status Never used Tobacco 11/01/22 14:11 e-Cigarette/Vaping Use Never Used 11/01/22 14:11 Thrive Assessment: Date of Thrive Assessment Date Thrive assessed 08/09/22 11/01/22 14:11 Const General: cooperative, comfortable and no acute distress Orientation/consciousness: patient oriented x3 HENMT Ears: external ears normal, TM's normal bilaterally and EAC's normal General nose exam: Normal external nose present, Normal nasal mucous membranes and turbinates present and No nasal discharge present Mouth: oropharynx normal and moist mucous membranes Eyes General: appearance normal, both eyes and all related structures Conjunctivae: conjunctivae normal Pupils: Equal, round and reactive pupils present EOM: EOMs intact bilaterally Neck Neck: Yes full ROM, Yes no lymphadenopathy and Yes supple Resp Effort & Inspection: normal respiratory effort and able to speak in complete sentences Auscultation: clear to auscultation bilaterally Cardio Rate: regular rate Rhythm: regular rhythm Heart sounds: S1 normal heart sound present and S2 normal heart sound present GI Inspection: Yes normal to inspection Palpation (GI): Soft to palpation, nontender and no masses Auscultation: normal bowel sounds Neuro General: patient oriented x3, gait normal, tone normal, moves all extremities, Normal light touch and pain sensation and no focal motor deficits Cranial nerves: Yes Equal, round and reactive pupils present Cognition (Neuro): normal cognition Gait exam (Neuro): Normal gait present Motor exam (neuro): 5/5 motor strength present throughout Extrem General: Yes normal to inspection, Yes full ROM, Yes normal exam except as noted, Yes no joint enlargement, Yes no clubbing, cyanosis or edema, Yes no calf tenderness and Yes normal gait Results Reviewed Results Reviewed: ENTERED: 10/25/22-[address] [facility] [address]: ORDERED: Met Prof Fast, AST, ALT, Lipid Panel Test Result Flag Reference Site Sodium 141 135-145 mmol/L Potassium 4.0 3.3-5.1 mmol/L CL 104 96-108 mmol/L CO2 28 22-29 mmol/L Gap 13 12-20 BUN 12 9-16 mg/dL Creat 0.75 0.5-1.4 mg/dL EGFR > 60 NOTE: For -[place] individuals, multiply the result by 1.210. Chronic Kidney Disease: Estimated GFR < 60 mL/min/1.73m2 Severe Kidney Disease: Estimated GFR < 15 mL/min/1.73m2 FBS 147 H 60-99 mg/dL A fasting glucose of 126 mg/dl or greater on more than one occasion is considered diagnostic of diabetes. CA 9.7 8.4-10.2 mg/dL AST (GOT) 15 5-31 U/L ALT (GPT) 14 0-31 U/L Triglyceride 78 <150 mg/dL Desirable Triglyceride: less than 150 mg/dL Borderline High Triglyceride 150-199 mg/dL High Triglyceride: 200-499 mg/dL Very High Triglyceride: greater than or equal to 5OO mg/dL Cholesterol 112 <200 mg/dL Desirable Cholesterol: less than 200 mg/dL Borderline High Cholesterol: 200-239 mg/dL High Cholesterol: greater than 239 mg/dL LDL Calculated 61 <100 mg/dL Desirable LDL: less than 100 mg/dL Near Optimal/Above Optimal LDL: 110-129 mg/dL Borderline High LDL: 130-159 mg/dL High LDL: 160-189 mg/dL Very High LDL: greater than or equal to 190 mg/dL HDL 36 L >40 mg/dL Desirable HDL: greater than 40 mg/dL Laboratory Tests 07/26/22 10/25/22 15:19 10:33 Estimat Average Glucose 186 180 Hemoglobin A1c % 8.1 7.9 H Assessment and Plan Assessment & Plan (1) Diabetes mellitus with hyperglycemia, with long-term current use of insulin: Code(s): E11.65 - Type 2 diabetes mellitus with hyperglycemia; Z79.4 - jail (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 of insulin Qualifiers: Diabetes mellitus type: type 2 Qualified Code(s): E11.65 - Type 2 diabetes mellitus with hyperglycemia; Z79.4 - terminal carman (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 of insulin Plan: Blood sugar control improving but still not at goal of hemoglobin A1c less than 7%. Increase dulaglutide dose to 1.5 mg given in once weekly, continue with Lantus, insulin lispro and metformin. Reinforced importance of following diabetic diet and getting regular exercise. Reminded again to get diabetes retinopathy screening done yearly and inspect feet for any lesions or ulcers or calluses. Reminded as well to get her yearly flu vaccine get an updated COVID booster, up-to-date with her Tdap and pneumonia vaccination. (2) HTN (hypertension): Code(s): I10 - Essential (primary) hypertension Qualifiers: Hypertension type: unspecified Qualified Code(s): I10 - Essential (primary) hypertension Plan: Blood pressure at goal of less than 130/80. Continue with current medication. Reinforced importance of following a low sodium diet, getting regular exercise, and lowering stress levels. Medications: Changed From dulaglutide (Trulicity) 0.75 mg (0.5 mL) subcut QWEEK 1 month 2 mL 5RF E11.29 - Type 2 diabetes mellitus with other diabetic kidney complication, E11.319 - Type 2 diabetes mellitus with unspecified diabetic retinopathy without macular edema, E11.9 - Type 2 diabetes mellitus without complications, R80.9 - Proteinuria, unspecified, Z79.4 - jail (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 of insulin To dulaglutide (Trulicity) 1.5 mg subcut QWEEK 1 month 2 mL 5RF E11.29 - Type 2 diabetes mellitus with other diabetic kidney complication, E11.319 - Type 2 diabetes mellitus with unspecified diabetic retinopathy without macular edema, E11.9 - Type 2 diabetes mellitus without complications, R80.9 - Proteinuria, unspecified, Z79.4 - terminal carman (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 of insulin Refilled Lantus Solostar U-100 Insulin (insulin glargine) 44 units (0.44 mL) subcut QPM 45 mL 5RF NS E11.65 - Type 2 diabetes mellitus with hyperglycemia, Z79.4 - jail (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 of insulin atorvastatin 40 mg PO DAILY 90 tabs 3RF E11.65 - Type 2 diabetes mellitus with hyperglycemia, Z79.4 - jail (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 of insulin insulin lispro + 2 units for bg over 200, 4 unit for very low carb meals 12 units (0.12 mL) subcut TID 15 mL 7RF NS lisinopril 2.5 mg PO DAILY 90 tabs 3RF E11.65 - Type 2 diabetes mellitus with hyperglycemia, Z79.4 - jail (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 of insulin metformin 1,000 mg PO BID 180 tabs 3RF Coding Level of Care Code Est Pt Level 3 (99599) Diagnoses Type 2 diabetes mellitus with hyperglycemia, with long-term current use of insulin E11.65; Z79.4 Diabetes mellitus type: type 2 Hypertension, unspecified type I10 Hypertension type: unspecified
[2022-11-01 14:15] VITALS: BP 120/70; PULSE 79; O2SAT 97; BMI 30.9
== END 2022-11-01 15:19 | disposition home or self-care (01) ==
PROVIDERS: PCP Internal Medicine; Visit Provider Internal Medicine
DX: E11.65 Type 2 diabetes mellitus with hyperglycemia (principal); Z79.4 Long term (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 of insulin; I10 Essential (primary) hypertension
CPT/HCPCS: 99213

== ENCOUNTER 2023-03-15 10:47 | Outpatient (REF) | payer OTHER, SELFPAY ==
[2023-03-22 04:23] LABS: HPV mRNA E6/E7 rflx Not Detected (Not Detected)
== END 2023-03-15 10:48 | disposition home or self-care (01) ==
LOC: HO.LNP 10:47
PROVIDERS: PCP Internal Medicine; Visit Provider Advanced Practice Midwife
DX: Z01.419 Encounter for gynecological examination (general) (routine) without abnormal findings (principal)
CPT/HCPCS: 87624; 88142; 99386

== ENCOUNTER 2023-03-15 10:47 | Outpatient (AMB) | payer OTHER, SELFPAY ==
--- NOTE | 2023-03-15 10:54 | MHC.OFFVIS ---
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 She is doing well with no concerns. She requested treatment for yeast, no current symptoms now but is prone to it often and would like to have a Rx on hand. Attempting to eat a healthy diet with calcium and vitamin D and stays active with exercise. Currently sexually active in years. 2015. Denies any vaginal dryness or irritation. Last pap smear; 2017. Last mammogram; 2022. Colonoscopy is UTD. Denies any family history of breast, ovarian or colon cancer. 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 Daughter No problems noted. Social History Housing: House Alcohol intake: current Alcohol intake frequency: holidays/special occasions only Alcohol type: wine Patient Tobacco Use Status: Never used Tobacco e-Cigarette/Vaping Use: Never Used Second Hand Smoke Exposure: No Current occupational status: employed Cognitive needs: No Hearing needs: No Vision needs: Yes Female Reproductive History Menstrual Menopause type: natural Total pregnancies: 3 Full term: 2 Number of Living Children: 2 Ectopics: 1 Date of last pap smear: 04/19/17 (neg pap and hpv) Date of Mammogram: 06/29/22 ([facility] 1) Review of Systems Const All systems reviewed & are unremarkable except as noted in HPI and below Reports as per HPI Eyes Reports no additional complaints ENT Reports no additional complaints Card Reports no additional complaints Resp Reports no additional complaints GI Reports as per HPI and Reports no additional complaints Reports as per HPI Musc Reports no additional complaints Skin/Breast Reports as per HPI Neuro Reports no additional complaints Psych Reports no additional complaints Endo Reports no additional complaints Radames/Lymph Reports no additional complaints Aller/Immun Reports no additional complaints Physical Exam Vital Signs: Last Vital Signs BP 114/64 03/15/23 10:55 BMI result Body Mass Index 31.2 Const General: cooperative, healthy appearing, no acute distress, well developed and alert Orientation/consciousness: patient oriented x3 HEENT Head: Yes normal to inspection Eyes General: appearance normal, both eyes and all related structures Neck Neck: Yes normal visual inspection Thyroid: Thyroid normal Chest Chest palpation & inspection: normal inspection of the chest and other (no puckering, dimpling, peau de orange, retraction, discharge, masses) Breast/axilla inspection: normal inspection of the breasts Breast/axilla palpation: normal palpation of the breasts Resp Effort & Inspection: normal respiratory effort GI Inspection: Yes normal to inspection Palpation (GI): Soft to palpation Rectal Exam - Female: deferred General: Yes bladder normal to palpation External Female Exam: normal external appearance and normal appearance of the urethra Speculum Exam - Vagina: normal appearance of the vagina, normal palpation, normal vaginal discharge and vagina atrophic Speculum Exam - Cervix: normal appearance of the cervix, normal palpation and Other cervical findings present (Bled slightly with Pap) Bimanual exam- vagina & uterus: normal bimanual exam, normal palpation, uterine size normal, bladder normal to palpation, normal palpation and non-tender Bimanual Exam- Adnexa, other: no masses Skin General skin exam: no rashes or lesions noted Rashes: no rashes Neuro General: patient oriented x3 Cognition (Neuro): normal cognition Extrem General: Yes normal to inspection Psych Attitude: cooperative Thought process: Normal thought process present Assessment & Plan Assessment & Plan (1) Encounter for well woman exam with routine gynecological exam: Code(s): Z01.419 - Encounter for gynecological examination (general) (routine) without abnormal findings Plan Discussed: Current recommendations for pap smears per ASCCP guidelines. Breast awareness, periodic self breast exams and yearly mammogram. Maintain a healthy lifestyle, well balanced diet including Calcium 1,200 mg and Vitamin D 600 IU daily, and routine exercise. Contact the office with any postmenopausal bleeding. Discuss treatment options to consider nystatin powder use. Patient verbalizes understanding and agrees to the plan of care. She was given opportunity to ask questions and all questions were answered to the best of my ability. RTO in 1 year for annual laborer beam house exam. This note is constructed using voice recognition software. While every effort has been made to ensure accuracy, captain/check airman errors may have been included. Orders: Orders Pap Smear Today Z01.419 - Encounter for gynecological examination (general) (routine) without abnormal findings Medications: New nystatin apply to clean dry skin fold 1 appl topical BID 30 grams 1RF Coding Level of Care Code New Pt Prev Care 40-64y(31695) Diagnoses Encounter for well woman exam with routine gynecological exam Z01.419
[2023-03-15 10:55] VITALS: BP 114/64; BMI 31.2
== END 2023-03-15 11:33 | disposition home or self-care (01) ==
LOC: HO.HWS 10:47
PROVIDERS: PCP Internal Medicine; Visit Provider Advanced Practice Midwife
DX: Z01.419 Encounter for gynecological examination (general) (routine) without abnormal findings (principal)
CPT/HCPCS: 99386

== ENCOUNTER 2023-03-28 09:19 | Outpatient (REF) | payer OTHER, SELFPAY ==
[2023-03-28 11:57] LABS: Estimated Average Glucose 160 mg/dL; Hemoglobin A1c % 7.2 % (<6.0)
[2023-03-28 12:23] LABS: Alanine Aminotransferase 14 U/L (0-31); Albumin Level 4.3 g/dL (3.5-5.0); Alkaline Phosphatase 74 U/L (39-117); Anion Gap 11 (12-20); Aspartate Amino Transferase 15 U/L (5-31); Bilirubin Total 0.3 mg/dL (0.0-1.0); Blood Urea Nitrogen 10 mg/dL (9-16); Carbon Dioxide 28 mmol/L (22-29); Chloride 104 mmol/L (96-108); Cholesterol 108 mg/dL (<200); Estimated Glomerular Filt Rate > 60; Glucose Fasting 136 mg/dL (60-99); HDL Cholesterol 35 mg/dL (>40); LDL Cholesterol Calculated 60 mg/dL (<100); Potassium 4.1 mmol/L (3.3-5.1); Sodium 139 mmol/L (135-145); Total Protein 7.8 g/dL (6.5-8.0); Triglycerides 67 mg/dL (<150); Vitamin D 25-OH Total 25.1 ng/mL (>30)
[2023-03-28 12:30] LABS: Creatinine Urine 84.13 mg/dL; Microalbum/Creatinine Ratio Ur 16.6 ug/mg cr (<30)
== END 2023-03-28 09:20 | disposition home or self-care (01) ==
LOC: HO.HMGCLDS 09:19
PROVIDERS: PCP Internal Medicine; Visit Provider Internal Medicine
DX: E11.65 Type 2 diabetes mellitus with hyperglycemia (principal); E11.29 Type 2 diabetes mellitus with other diabetic kidney complication; E11.319 Type 2 diabetes mellitus with unspecified diabetic retinopathy without macular edema; R80.9 Proteinuria, unspecified; I10 Essential (primary) hypertension; E66.9 Obesity, unspecified; E78.5 Hyperlipidemia, unspecified; Z79.4 Long term (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 of insulin
CPT/HCPCS: 36415; 80053; 80061; 82043; 82306; 82570; 83036

== ENCOUNTER 2023-06-27 11:43 | Outpatient (REF) | payer OTHER, SELFPAY ==
[2023-06-27 13:37] LABS: Estimated Average Glucose 163 mg/dL; Hemoglobin A1c % 7.3 % (<6.0)
[2023-06-27 14:20] LABS: Alanine Aminotransferase 16 U/L (0-31); Anion Gap 14 (12-20); Aspartate Amino Transferase 13 U/L (5-31); Blood Urea Nitrogen 12 mg/dL (9-16); Calcium 10.2 mg/dL (8.4-10.2); Carbon Dioxide 29 mmol/L (22-29); Chloride 103 mmol/L (96-108); Cholesterol 156 mg/dL (<200); Creatinine Urine 43.15 mg/dL; Estimated Glomerular Filt Rate > 60; Glucose Fasting 78 mg/dL (60-99); HDL Cholesterol 40 mg/dL (>40); LDL Cholesterol Calculated 98 mg/dL (<100); Microalbum/Creatinine Ratio Ur 16.2 ug/mg cr (<30); Potassium 3.8 mmol/L (3.3-5.1); Sodium 142 mmol/L (135-145); Triglycerides 90 mg/dL (<150)
== END 2023-06-27 11:44 | disposition home or self-care (01) ==
LOC: HO.HMGCLDS 11:43
PROVIDERS: PCP Internal Medicine; Visit Provider Internal Medicine
DX: I10 Essential (primary) hypertension (principal); E11.319 Type 2 diabetes mellitus with unspecified diabetic retinopathy without macular edema; E11.29 Type 2 diabetes mellitus with other diabetic kidney complication; R80.9 Proteinuria, unspecified; E11.65 Type 2 diabetes mellitus with hyperglycemia; E78.5 Hyperlipidemia, unspecified; Z79.4 Long term (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 of insulin
CPT/HCPCS: 36415; 80048; 80061; 82043; 82306; 82570; 83036; 84450; 84460

== ENCOUNTER 2023-07-18 12:01 | Outpatient (REF) | payer OTHER, SELFPAY ==
--- NOTE | ~2023-07-18 | MM_ITS ---
EXAMINATION: MM SCREENING DIGITAL BREAST TOMOSYNTHESIS, BILATERAL CLINICAL INFORMATION: Screening. Asymptomatic. COMPARISON: Mammography: This study is compared with prior exams dating back to 2019 TECHNIQUE: Digital breast tomosynthesis is performed in both the craniocaudal and mediolateral oblique views along with computer-aided detection (CAD). Synthesized 2D images are generated from the tomosynthesis. FINDINGS: There are scattered areas of fibroglandular density (ACR BI-RADS breast composition Category b). There are no significant masses, abnormal calcifications, or other abnormalities. MM/MM tomosynthesis screening BI IMPRESSION: No mammographic evidence of malignancy. ASSESSMENT: BI-RADS BI-RADS 1 - Negative RECOMMENDATION: Routine annual mammography screening. 1 year F/U This examination should not preclude the clinical evaluation of a suspicious palpable abnormality. This patient's information was entered into a reminder system with a target due date for their next mammogram.
== END 2023-07-18 12:02 | disposition home or self-care (01) ==
LOC: HO.MAMMO 12:01
PROVIDERS: PCP Internal Medicine; Visit Provider Internal Medicine
DX: Z12.31 Encounter for screening mammogram for malignant neoplasm of breast (principal)
CPT/HCPCS: 77063; 77067

== ENCOUNTER → 2023-07-18 13:00 | Outpatient (BNV) | payer OTHER, SELFPAY | PROVIDERS: PCP Internal Medicine; Visit Provider Radiology Diagnostic Radiology | DX: Z12.31 Encounter for screening mammogram for malignant neoplasm of breast (principal) | CPT/HCPCS: 77063; 77067 ==

== ENCOUNTER 2023-07-19 09:16 | Outpatient (AMB) | payer OTHER, SELFPAY ==
--- NOTE | 2023-07-19 09:20 | MHC.PC.OV ---
Vital Signs 07/19/23 09:21 Height 5 ft 8 in Weight 204 lb BMI 31.0 BP 148/82 H Blood Pressure Location Lt brachial Position Sitting Pulse 67 Pulse Source Pulse Oximeter Pulse Oximetry (%) 98 Oxygen Delivery Method Room Air Intake Visit Reasons: F/U DM lon from 07/04/23 Allergies No Known Allergies Allergy (Verified 07/19/23 09:31) Medication List - Last Reconciled 07/19/23 by Kim Reynoso MD atorvastatin 40 mg PO DAILY blood sugar diagnostic (FreeStyle Lite Strips) As directed to test blood sugar 3x/day blood-glucose meter (FreeStyle [place] Lite kit) As directed to test blood sugar 3x/day cyclosporine 0.05% (Restasis) drps ophthalmic (eye) ONCE dulaglutide 3 mg (0.5 mL) subcut QWEEK fluocinonide 0.05% topical ibuprofen 800 mg PO Q8H PRN insulin lispro 12 units (0.12 mL) subcut TID NS ketoconazole 2% 1 appl topical DAILY 10 days Lantus Solostar U-100 Insulin (insulin glargine) 44 units (0.44 mL) subcut QPM NS lidocaine 5% 1 patch topical DAILY lisinopril 2.5 mg PO DAILY metformin 1,000 mg PO BID Novolog FlexPen U-100 Insulin (insulin aspart U-100) 12 units (0.12 mL) subcut TID 30 days NS nystatin 1 appl topical BID omeprazole 40 mg PO DAILY pen needle, diabetic (UltiCare Pen Needle) use as directed QID , ac & HS 4 times a day; Tobacco use date assessed: 07/19/23 Dental Screening Dental Screen Date: 07/19/23 Did you have a dental visit in the last 12 months?: Yes Did you have a dental problem in the last 6 months where you did not have access to dental care?: No Was dental information given to patient?: Patient has dentist HPI F/U DM lon from 07/04/23 HPI Details 63-year-old lady here today for follow-up on her diabetes mellitus, currently taking insulin lispro 12 units 3 times a day with meals, Lantus 44 units once a day at night, and metformin a 1000 mg 1 tablet twice a day. Latest hemoglobin A1c is at 7.3%. Has been unable to get her Lantus prescription filled due to being out of stock in most pharmacies Takes lisinopril 2.5 mg 1 daily, blood pressure however today is elevated at 140 8/82. Currently on atorvastatin 40 mg daily, with latest fasting lipids showing LDL at 90 and HDL 40, with total cholesterol at 156 and a triglyceride at 90 mg/dL. Compliant with diet and exercise, up-to-date with her diabetes retinopathy screening. 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 Daughter No problems noted. Social History Housing: House Alcohol intake: current Alcohol intake frequency: holidays/special occasions only Alcohol type: wine Patient Tobacco Use Status: Never used Tobacco e-Cigarette/Vaping Use: Never Used Second Hand Smoke Exposure: No Current occupational status: employed Cognitive needs: No Hearing needs: No Vision needs: Yes Questionnaire PHQ-9 Over the last 2 weeks, how often have you been bothered by any of the following problems? 1. Little interest or pleasure in doing things: not at all 2. Feeling down, depressed, or hopeless: not at all 3. Trouble falling or staying asleep, or sleeping too much: not at all 4. Feeling tired or having little energy: not at all 5. Poor appetite or overeating: not at all 6. Feeling bad about yourself - or that you are a failure or have let yourself or your family down: not at all 7. Trouble concentrating on things, such as reading the newspaper or watching television: not at all 8. Moving or speaking so slowly that other people could have noticed. Or the opposite - being so fidgety or restless that you have been moving around a lot more than usual: not at all 9. Thoughts that you would be better off or of hurting yourself in some way: not at all Total score: 0 Depression Screening Interpretation: Negative Depression Screening Done: Yes 56796 - PHQ-9 Billing: Yes Source: Developed by Drs. Shankar Childress, Ruth Blank, Augustin Melara and colleagues, with an educational michelle from [employer]. Thrive Questionnaire Date Thrive assessed: 07/19/23 I am a: Patient What is your living situation today?: I have a steady place to live Within the past 12 months, did the food you bought not last and you didn't have the money to get more?: Never true Within the past 12 months, did you worry whether your food would run out before you got money to buy more?: Never true Do you have trouble paying for medicines?: No Do you have trouble getting transportation to medical appointments?: No Do you have trouble paying your heating and electricity bill?: No Do you have trouble taking care of your child, family member or friend?: No Do you have trouble with day-to-day activities such as bathing, preparing meals, shopping, managing finances, etc.?: No Are you currently unemployed and looking for a job?: No Are you interested in more education?: No THRIVE Score: 0 AUDIT C Alcohol Use Questionnaire (AUDIT-C) 1. How often do you have a drink containing alcohol?: Never Total Score: 0 KINGSTON-7 AMB Questionnaire KINGSTON-7 Date KINGSTON - 7 assessed: 07/19/23 Feeling nervous, anxious, or on edge: 0 = Not at all Not being able to stop or control worryin = Not at all Worrying too much about different things: 0 = Not at all Trouble relaxin = Not at all Being so restless that it is hard to sit still: 0 = Not at all Becoming easily annoyed or irritable: 0 = Not at all Feeling afraid as if something awful might happen: 0 = Not at all Total KINGSTON-7 score (0-4 normal; 5-9 mild; 10-14 moderate; 15-21 severe): 0 Source: Developed by Drs. Shankar Childress, Ruth Blank, Augustin Melara and colleagues, with an educational michelle from [employer]. KINGSTON-7 Assessment Billing KINGSTON-7 Assessment Tool: KINGSTON-7 Assessment 21947 Review of Systems Const Denies fatigue, Denies headache(s) and Denies malaise Eyes Reports change in vision (Currently being seen by her roller leveler in [place]) ENT Denies headache(s) and Denies sore throat Card Denies chest pain, Denies irregular heart rhythm, Denies palpitations and Denies dyspnea Resp Denies cough and Denies dyspnea GI Denies constipation and Denies diarrhea Denies urinary frequency and Denies dysuria Musc Denies muscle cramps, Denies muscle weakness, Denies numbness and Denies tingling Skin/Breast Denies breast swelling, Denies breast skin changes, Denies breast pain, Denies breast mass and Denies rash Neuro Denies burning sensations, Denies headache(s), Denies numbness, Denies tingling and Denies paresthesias Psych Reports no additional complaints Endo Denies fatigue, Denies polydipsia, Denies polyuria and Denies palpitations Radames/Lymph Reports no additional complaints Aller/Immun Reports no additional complaints Physical exam (Primary Care) Vital Signs: Last Vital Signs Pulse 67 07/19/23 09:21 BP 148/82 H 07/19/23 09:21 Pulse Ox 98 07/19/23 09:21 Oxygen Delivery Method Room Air 07/19/23 09:21 BMI result Body Mass Index 31.0 Tobacco/Smoking Status: Tobacco use Status Tobacco use date assessed 07/19/23 07/19/23 09:23 Patient Tobacco Use Status Never used Tobacco 07/19/23 09:23 e-Cigarette/Vaping Use Never Used 07/19/23 09:23 PHQ-9: PHQ-9 Score PHQ-9: Total score 0 07/19/23 09:36 Depression Screening Interpretation: Negative Thrive Assessment: Date of Thrive Assessment Date Thrive assessed 07/19/23 07/19/23 09:25 Const General: cooperative, comfortable and no acute distress Orientation/consciousness: patient oriented x3 HENMT Ears: external ears normal General nose exam: Normal external nose present Mouth: oropharynx normal and moist mucous membranes Eyes General: appearance normal, both eyes and all related structures Conjunctivae: conjunctivae normal Pupils: Equal, round and reactive pupils present EOM: EOMs intact bilaterally Neck Neck: Yes full ROM, Yes no lymphadenopathy and Yes supple Resp Effort & Inspection: normal respiratory effort and able to speak in complete sentences Auscultation: clear to auscultation bilaterally Cardio Rate: regular rate Rhythm: regular rhythm Heart sounds: S1 normal heart sound present and S2 normal heart sound present GI Inspection: Yes normal to inspection Palpation (GI): Soft to palpation, nontender and no masses Auscultation: normal bowel sounds Neuro General: patient oriented x3, gait normal, tone normal, moves all extremities, Normal light touch and pain sensation and no focal motor deficits Cranial nerves: Yes Equal, round and reactive pupils present Cognition (Neuro): normal cognition Gait exam (Neuro): Normal gait present Motor exam (neuro): 5/5 motor strength present throughout Extrem General: Yes normal to inspection, Yes full ROM, Yes normal exam except as noted, Yes no joint enlargement, Yes no clubbing, cyanosis or edema, Yes no calf tenderness and Yes normal gait Results Reviewed Results Reviewed: Name: Hui Franco Age/Sex: 63/F : 1960 Unit#: [id number] Attend Dr: Kim Reynoso MD Re06/27/23 Status: DEP REF Location: [facility] Disch: SPEC : [id number] RENETTA: 06/27/23 STATUS: COMP REQ : [id number] RECD: 06/27/23-[address]: Kim Reynoso MD COMP: 06/27/23-4 ENTERED: 06/27/23-[address]: ORDERED: Met Prof Fast, AST, ALT, Lipid Panel, Vitamin D 25-OH Test Result Flag Reference Sodium 142 135-145 mmol/L Potassium 3.8 3.3-5.1 mmol/L CL 103 96-108 mmol/L CO2 29 22-29 mmol/L Gap 14 12-20 BUN 12 9-16 mg/dL Creat 0.68 0.5-1.4 mg/dL EGFR > 60 NOTE: For -[place] individuals, multiply the result by 1.210. Chronic Kidney Disease: Estimated GFR < 60 mL/min/1.73m2 Severe Kidney Disease: Estimated GFR < 15 mL/min/1.73m2 FBS 78 60-99 mg/dL CA 10.2 8.4-10.2 mg/dL AST (GOT) 13 5-31 U/L ALT (GPT) 16 0-31 U/L Triglyceride 90 <150 mg/dL Desirable Triglyceride: less than 150 mg/dL Borderline High Triglyceride 150-199 mg/dL High Triglyceride: 200-499 mg/dL Very High Triglyceride: greater than or equal to 5OO mg/dL Cholesterol 156 <200 mg/dL Desirable Cholesterol: less than 200 mg/dL Borderline High Cholesterol: 200-239 mg/dL High Cholesterol: greater than 239 mg/dL LDL Calculated 98 <100 mg/dL Desirable LDL: less than 100 mg/dL Near Optimal/Above Optimal LDL: 110-129 mg/dL Borderline High LDL: 130-159 mg/dL High LDL: 160-189 mg/dL Very High LDL: greater than or equal to 190 mg/dL HDL 40 L >40 mg/dL Desirable HDL: greater than 40 mg/dL Note: This HDL assay may give artificially low results in patients with liver disease. 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 Will continue on insulin lispro 12 units subcutaneously given t.i.d. before meals, Lantus Solostar 44 units with supper, metformin a 1000 mg twice a day, and added Mounjaro 2.5 mg per injection injected subcutaneously once a week. Advised to continue to check fasting blood sugar at home, maintain log and bring to next appointment for review. Reinforced diabetic diet and regular exercise with patient. Counseled regarding importance of yearly diabetes retinopathy screening , currently up-to-date. Patient advised to inspect feet daily, for any signs of injury, callus or infection. Compliance with diet and regular exercise again stressed. Blood pressure goal is less than 130/80, goal LDL is less than 100 and goal hemoglobin A1c is less than 7% follow-up appointment made in-4weeks , after starting Mounjaro. (2) HTN (hypertension): Code(s): I10 - Essential (primary) hypertension Qualifiers: Hypertension type: unspecified Qualified Code(s): I10 - Essential (primary) hypertension Plan: Blood pressure today not well controlled, currently on 2.5 mg lisinopril, will increase dose to 5 mg of lisinopril to be taken once a day. (3) HLD (hyperlipidemia): Code(s): E78.5 - Hyperlipidemia, unspecified Qualifiers: Hyperlipidemia type: unspecified Qualified Code(s): E78.5 - Hyperlipidemia, unspecified Plan: Reviewed recent fasting lipid profile with patient with levels within normal limits . Continue atorvastatin 40 mg daily in addition to adherence to low-cholesterol diet and regular exercise, at least 30 minutes 3 to 4 times a week. Advised patient to make healthy food choices, eat more fruits, vegetables, whole grains, wild caught fish and low-fat dairy. Limit amount of meat and fried or fatty food products, as well as processed foods and fast foods. (4) Vitamin D deficiency: Code(s): E55.9 - Vitamin D deficiency, unspecified Plan: Prescribed vitamin D3 29699 units per capsule to take once a week for the next 3 months. Patient advised that once she finishes taking the prescription, to continue taking [id number] vitamin-D 3 at 2000 units daily Medications: New Mounjaro (tirzepatide) 2.5 mg (0.5 mL) subcut QWEEK 2 mL 1RF 4 weeks NS E11.65 - Type 2 diabetes mellitus with hyperglycemia, Z79.4 - FPC (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 of insulin blood-glucose sensor (FreeStyle [place] 3 Sensor device) As directed 1 ea 0RF E11.65 - Type 2 diabetes mellitus with hyperglycemia, Z79.4 - termite control servicer (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 of insulin blood-glucose meter,continuous (FreeStyle Kwesi 3 [place]) As directed 1 ea 0RF E11.65 - Type 2 diabetes mellitus with hyperglycemia, Z79.4 - FPC (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 of insulin cholecalciferol (vitamin D3) 1,250 mcg PO QWEEK 13 caps 0RF 3 months Changed From lisinopril 2.5 mg PO DAILY 90 tabs 3RF E11.65 - Type 2 diabetes mellitus with hyperglycemia, Z79.4 - FPC (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 of insulin, I10 - Essential (primary) hypertension To lisinopril 5 mg PO DAILY 90 tabs 3RF E11.65 - Type 2 diabetes mellitus with hyperglycemia, Z79.4 - FPC (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 of insulin, I10 - Essential (primary) hypertension Coding Level of Care Code Est Pt Level 4 (63781) Diagnoses Type 2 diabetes mellitus with hyperglycemia, with long-term current use of insulin E11.65; Z79.4 Diabetes mellitus type: type 2 Hypertension, unspecified type I10 Hypertension type: unspecified Hyperlipidemia, unspecified hyperlipidemia type E78.5 Hyperlipidemia type: unspecified Vitamin D deficiency E55.9 Additional Codes KINGSTON-7 Assessment Billing - KINGSTON-7 Assessment Tool: KINGSTON-7 Assessment 51114 ([id number])
[2023-07-19 09:21] VITALS: BP 148/82; PULSE 67; O2SAT 98; BMI 31.0
== END 2023-07-19 10:15 | disposition home or self-care (01) ==
LOC: HO.HMGC 09:16
PROVIDERS: PCP Internal Medicine; Visit Provider Internal Medicine
DX: E11.65 Type 2 diabetes mellitus with hyperglycemia (principal); Z79.4 Long term (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 of insulin; I10 Essential (primary) hypertension; E78.5 Hyperlipidemia, unspecified; E55.9 Vitamin D deficiency, unspecified
CPT/HCPCS: 99214

== ENCOUNTER 2023-09-12 11:55 | Outpatient (AMB) | payer OTHER, SELFPAY ==
[2023-09-12 12:00] VITALS: BP 140/70; PULSE 74; O2SAT 94; BMI 30.7
--- NOTE | 2023-09-12 12:00 | MHC.PC.OV ---
Vital Signs 09/12/23 12:00 Height 5 ft 8 in Weight 202 lb BMI 30.7 BP 140/70 H Blood Pressure Location Rt brachial Position Sitting Pulse 74 Pulse Source Pulse Oximeter Pulse Oximetry (%) 94 Oxygen Delivery Method Room Air Intake Visit Reasons: Annual PE/OK per Dr. Hernandez Intake Note: Pt is here today for her PE: Last mammogram 07/18/23, papsmear 03/16/23, colonoscopy 12/16/14 Allergies No Known Allergies Allergy (Verified 09/12/23 12:15) Medication List - Last Reconciled 09/12/23 by Kim Reynoso MD atorvastatin 40 mg PO DAILY blood sugar diagnostic (FreeStyle Lite Strips) As directed to test blood sugar 3x/day blood-glucose meter (FreeStyle [place] Lite kit) As directed to test blood sugar 3x/day blood-glucose meter,continuous (FreeStyle [place] 3 [place]) As directed blood-glucose sensor (FreeStyle Kwesi 3 Sensor device) As directed cholecalciferol (vitamin D3) 1,250 mcg PO QWEEK 3 months cyclosporine 0.05% (Restasis) drps ophthalmic (eye) ONCE fluocinonide 0.05% topical ibuprofen 800 mg PO Q8H PRN ketoconazole 2% 1 appl topical DAILY 10 days Lantus Solostar U-100 Insulin (insulin glargine) 44 units (0.44 mL) subcut QPM NS lidocaine 5% 1 patch topical DAILY lisinopril 5 mg PO DAILY metformin 1,000 mg PO BID Novolog FlexPen U-100 Insulin (insulin aspart U-100) 12 units (0.12 mL) subcut TID 30 days NS nystatin 1 appl topical BID omeprazole 40 mg PO DAILY pen needle, diabetic (UltiCare Pen Needle) use as directed QID , ac & HS 4 times a day; Tobacco use date assessed: 07/19/23 Dental Screening Dental Screen Date: 07/19/23 Did you have a dental visit in the last 12 months?: Yes Did you have a dental problem in the last 6 months where you did not have access to dental care?: No Was dental information given to patient?: Patient has dentist HPI Annual PE/OK per Dr. Hernandez HPI Details 63-year-old lady with diabetes mellitus, hyperlipidemia, hypertension, obesity, chronic GERD, here today for physical exam. She is up-to-date with her screening mammogram, last done 07/18/23, and up-to-date with her cervical cancer screening, last papsmear done 03/16/23 at [facility]. She had a screening colonoscopy done by Dr. Jolley in 2014, due again in 2024. Up-to-date with her diabetes eye screening,/eye exam, goes to 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 She has been feeling well, with no complaints at present time. 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 Daughter No problems noted. Social History Housing: House Alcohol intake: current Alcohol intake frequency: holidays/special occasions only Alcohol type: wine Patient Tobacco Use Status: Never used Tobacco e-Cigarette/Vaping Use: Never Used Second Hand Smoke Exposure: No Current occupational status: employed Cognitive needs: No Hearing needs: No Vision needs: Yes Questionnaire PHQ-9 Over the last 2 weeks, how often have you been bothered by any of the following problems? Depression Screening Interpretation: Negative Depression Screening Done: Yes Source: Developed by Drs. Shankar Childress, Ruth Blank, Augustin Melara and colleagues, with an educational michelle from [employer]. Thrive Questionnaire Date Thrive assessed: 07/19/23 [place]-7 AMB Questionnaire [place]ON-7 Date [place] - 7 assessed: 07/19/23 Source: Developed by Drs. Shankar Childress, Ruth Blank, Augustin Melara and colleagues, with an educational michelle from [employer]. Review of Systems Const Denies fatigue, Denies headache(s) and Denies malaise Eyes Reports change in vision (Currently being seen by her cardiac cath rn in [place]) ENT Denies headache(s) and Denies sore throat Card Denies chest pain, Denies irregular heart rhythm, Denies palpitations and Denies dyspnea Resp Denies cough and Denies dyspnea GI Denies constipation and Denies diarrhea Denies urinary frequency and Denies dysuria Musc Denies muscle cramps, Denies muscle weakness, Denies numbness and Denies tingling Skin/Breast Denies breast swelling, Denies breast skin changes, Denies breast pain, Denies breast mass and Denies rash Neuro Denies burning sensations, Denies headache(s), Denies numbness, Denies tingling and Denies paresthesias Psych Reports no additional complaints Endo Denies fatigue, Denies polydipsia, Denies polyuria and Denies palpitations Radames/Lymph Reports no additional complaints Aller/Immun Reports no additional complaints Physical exam (Primary Care) Vital Signs: Last Vital Signs Pulse 74 09/12/23 12:00 BP 140/70 H 09/12/23 12:00 Pulse Ox 94 09/12/23 12:00 Oxygen Delivery Method Room Air 09/12/23 12:00 BMI result Body Mass Index 30.7 Tobacco/Smoking Status: Tobacco use Status Tobacco use date assessed 07/19/23 09/12/23 12:01 Patient Tobacco Use Status Never used Tobacco 09/12/23 12:01 e-Cigarette/Vaping Use Never Used 09/12/23 12:01 Depression Screening Interpretation: Negative Thrive Assessment: Date of Thrive Assessment Date Thrive assessed 07/19/23 09/12/23 12:01 Const General: no acute distress Nutritional Appearance: obese Orientation/consciousness: patient oriented x3 HENMT Ears: external ears normal General nose exam: Normal external nose present Mouth: oropharynx normal and moist mucous membranes Eyes General: appearance normal, both eyes and all related structures Conjunctivae: conjunctivae normal Pupils: Equal, round and reactive pupils present EOM: EOMs intact bilaterally Neck Neck: Yes full ROM, Yes no lymphadenopathy and Yes supple Chest Breast/axilla inspection: normal inspection of the breasts Breast/axilla palpation: normal palpation of the breasts Resp Effort & Inspection: normal respiratory effort and able to speak in complete sentences Auscultation: clear to auscultation bilaterally Cardio Rate: regular rate Rhythm: regular rhythm Heart sounds: S1 normal heart sound present and S2 normal heart sound present GI Inspection: Yes normal to inspection Palpation (GI): Soft to palpation, nontender and no masses Auscultation: normal bowel sounds General: Yes no CVA tenderness Back/Spine/Pelvis Back: no CVA tenderness Skin General skin exam: no rashes or lesions noted Neuro General: patient oriented x3, gait normal, tone normal, moves all extremities, Normal light touch and pain sensation and no focal motor deficits Cranial nerves: Yes Equal, round and reactive pupils present Cognition (Neuro): normal cognition Gait exam (Neuro): Normal gait present Motor exam (neuro): 5/5 motor strength present throughout Extrem General: Yes normal to inspection, Yes full ROM, Yes normal exam except as noted, Yes no joint enlargement, Yes no clubbing, cyanosis or edema, Yes no calf tenderness and Yes normal gait Psych Appearance: grossly normal and well kempt Mental Status: mental status grossly normal Speech and movement: Normal speech and movement present Affect: normal affect Attitude: cooperative Thought process: Normal thought process present Thought content: Normal thought content present Results Reviewed Results Reviewed: Laboratory Tests 05/11/22 06/27/23 10:16 12:17 WBC 12.0 H Hgb 10.1 L Hct 34.6 L MCV 78.5 L RDW 18.6 H Plt Count 403 H Urine Creatinine 43.15 Urine Microalbumin 7.0 Microalb/Creat Ratio 16.2 Name: Hui Franco Age/Sex: 63/F : 1960 Unit#: [id number] Attend Dr: Kim Reynoso MD Re06/27/23 Status: DEP REF Location: [facility] Disch: SPEC : [id number] RENETTA: 06/27/23 STATUS: COMP REQ : [id number] RECD: 06/27/[address]: Kim Reynoso MD COMP: 06/27/23-1434 ENTERED: 06/27/23-12[address] [facility] DR: ORDERED: Met Prof Fast, AST, ALT, Lipid Panel, Vitamin D 25-OH Test Result Flag Reference Sodium 142 135-145 mmol/L Potassium 3.8 3.3-5.1 mmol/L CL 103 96-108 mmol/L CO2 29 22-29 mmol/L Gap 14 12-20 BUN 12 9-16 mg/dL Creat 0.68 0.5-1.4 mg/dL EGFR > 60 NOTE: For -[place] individuals, multiply the result by 1.210. Chronic Kidney Disease: Estimated GFR < 60 mL/min/1.73m2 Severe Kidney Disease: Estimated GFR < 15 mL/min/1.73m2 FBS 78 60-99 mg/dL CA 10.2 8.4-10.2 mg/dL AST (GOT) 13 5-31 U/L ALT (GPT) 16 0-31 U/L Triglyceride 90 <150 mg/dL Desirable Triglyceride: less than 150 mg/dL Borderline High Triglyceride 150-199 mg/dL High Triglyceride: 200-499 mg/dL Very High Triglyceride: greater than or equal to 5OO mg/dL Cholesterol 156 <200 mg/dL Desirable Cholesterol: less than 200 mg/dL Borderline High Cholesterol: 200-239 mg/dL High Cholesterol: greater than 239 mg/dL LDL Calculated 98 <100 mg/dL Desirable LDL: less than 100 mg/dL Near Optimal/Above Optimal LDL: 110-129 mg/dL Borderline High LDL: 130-159 mg/dL High LDL: 160-189 mg/dL Very High LDL: greater than or equal to 190 mg/dL HDL 40 L >40 mg/dL Desirable HDL: greater than 40 mg/dL Note: This HDL assay may give artificially low results in patients with liver disease. 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 Stressed importance of control of diabetes mellitus (3) HTN (hypertension): Code(s): I10 - Essential (primary) hypertension Qualifiers: Hypertension type: unspecified Qualified Code(s): I10 - Essential (primary) hypertension Plan: Blood pressure elevated today. Will increase lisinopril to 10 mg once a day in a.m., reinforced importance of following a low-salt diet, weight loss through diet and exercise. (4) HLD (hyperlipidemia): Code(s): E78.5 - Hyperlipidemia, unspecified Qualifiers: Hyperlipidemia type: unspecified Qualified Code(s): E78.5 - Hyperlipidemia, unspecified Plan: Fasting lipid panel done 07/02/2023 showed results within normal limits. Will continue on atorvastatin 40 mg daily, and reinforced again importance of following a low-cholesterol diet and getting regular exercise. (5) Obesity (BMI 30.0-34.9): Code(s): E66.9 - Obesity, unspecified Plan: Your BMI is above the ideal range. Discussed need to increase activity and weight reduction. Recommended focusing on improving health instead of dieting. Mediterranean diet is a healthy diet that helps, limit food high in fat, sugar, and calories. Eat slowly, pay attention to portion sizes, plan your meals ahead of time, start regular physical activity, at least 150 minutes of moderate intensity exercise, or 90 minutes per week of vigorous exercise. Keeping a food diary, tracking what you eat and your physical activity can help assess what improvements you can make. There are many health problems associated with being overweight/obese, so it is important to improve your diet and exercise. There are medications and surgical options available, but Lifestyle changes are the 1st step. (6) Annual visit for general adult medical examination with abnormal findings: Code(s): Z00.01 - Encounter for general adult medical examination with abnormal findings Plan: Will check appropriate labs. Recommended dental visit every 6 months and regular eye exams, currently up-to-date, seen yearly.. Take adequate calcium in diet and vitamin-D 3 at 2000 IU per cap once a day, in addition to weight-bearing exercises to help maintain good muscle tone and weight control. Instructed to do self-breast exam, and continue with yearly mammogram, currently up-to-date. She is also up-to-date with her cervical cancer screening, goes to [facility]. Colonoscopy screening up-to-date, due again for a recheck in 2024. Has had COVID vaccines, does not want to get the booster, refuses to get flu shot, up-to-date with her pneumonia vaccine and Tdap. Patient recommended to get shingles vaccination (7) Refused influenza vaccine: Code(s): Z28.21 - Immunization not carried out because of patient refusal Orders: Orders Aspartate Amino Transferase 10/14/23 E11.319 - Type 2 diabetes mellitus with unspecified diabetic retinopathy without macular edema, E66.9 - Obesity, unspecified, E78.5 - Hyperlipidemia, unspecified, I10 - Essential (primary) hypertension, K21.9 - Gastro-esophageal reflux disease without esophagitis, Z00.01 - Encounter for general adult medical examination with abnormal findings Lipid Panel 10/14/23 E11.319 - Type 2 diabetes mellitus with unspecified diabetic retinopathy without macular edema, E66.9 - Obesity, unspecified, E78.5 - Hyperlipidemia, unspecified, I10 - Essential (primary) hypertension, K21.9 - Gastro-esophageal reflux disease without esophagitis, Z00.01 - Encounter for general adult medical examination with abnormal findings Basic Metabolic Panel Fasting 10/14/23 E11.319 - Type 2 diabetes mellitus with unspecified diabetic retinopathy without macular edema, E66.9 - Obesity, unspecified, E78.5 - Hyperlipidemia, unspecified, I10 - Essential (primary) hypertension, K21.9 - Gastro-esophageal reflux disease without esophagitis, Z00.01 - Encounter for general adult medical examination with abnormal findings Alanine Aminotransferase 10/14/23 E11.319 - Type 2 diabetes mellitus with unspecified diabetic retinopathy without macular edema, E66.9 - Obesity, unspecified, E78.5 - Hyperlipidemia, unspecified, I10 - Essential (primary) hypertension, K21.9 - Gastro-esophageal reflux disease without esophagitis, Z00.01 - Encounter for general adult medical examination with abnormal findings Complete Blood Count Auto Diff 10/14/23 E11.319 - Type 2 diabetes mellitus with unspecified diabetic retinopathy without macular edema, E66.9 - Obesity, unspecified, E78.5 - Hyperlipidemia, unspecified, I10 - Essential (primary) hypertension, K21.9 - Gastro-esophageal reflux disease without esophagitis, Z00.01 - Encounter for general adult medical examination with abnormal findings IRON PROFILE 10/14/23 E11.319 - Type 2 diabetes mellitus with unspecified diabetic retinopathy without macular edema, E66.9 - Obesity, unspecified, E78.5 - Hyperlipidemia, unspecified, I10 - Essential (primary) hypertension, K21.9 - Gastro-esophageal reflux disease without esophagitis, Z00.01 - Encounter for general adult medical examination with abnormal findings Vitamin D 25-OH Total 10/14/23 E11.319 - Type 2 diabetes mellitus with unspecified diabetic retinopathy without macular edema, E66.9 - Obesity, unspecified, E78.5 - Hyperlipidemia, unspecified, I10 - Essential (primary) hypertension, K21.9 - Gastro-esophageal reflux disease without esophagitis, Z00.01 - Encounter for general adult medical examination with abnormal findings Medications: Changed From lisinopril 5 mg PO DAILY 90 tabs 3RF E11.65 - Type 2 diabetes mellitus with hyperglycemia, I10 - Essential (primary) hypertension, 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 To lisinopril 10 mg PO DAILY 90 tabs 3RF E11.65 - Type 2 diabetes mellitus with hyperglycemia, I10 - Essential (primary) hypertension, Z79.4 - residential (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 of insulin Refilled ketoconazole 2% 1 appl topical DAILY 10 days 60 grams 0RF R21 - Rash and other nonspecific skin eruption Coding Level of Care Code Est Pt Prev Care 40-64y(39060) Diagnoses GERD (gastroesophageal reflux disease) K21.9 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
== END 2023-09-12 12:35 | disposition home or self-care (01) ==
LOC: HO.HMGC 11:55
PROVIDERS: PCP Internal Medicine; Visit Provider Internal Medicine
DX: Z00.00 Encounter for general adult medical examination without abnormal findings (principal); K21.9 Gastro-esophageal reflux disease without esophagitis; E11.319 Type 2 diabetes mellitus with unspecified diabetic retinopathy without macular edema; I10 Essential (primary) hypertension; E78.5 Hyperlipidemia, unspecified; E66.9 Obesity, unspecified; Z28.21 Immunization not carried out because of patient refusal
CPT/HCPCS: 99213; 99396

== ENCOUNTER 2023-11-01 10:57 | Outpatient (REF) | payer OTHER, SELFPAY ==
[2023-11-01 13:17] LABS: MANUAL DIFF FLAG NO
[2023-11-01 13:43] LABS: Basophils Percent Auto 0.4 % (0-2); Eosinophils Absolute Auto 0.1 X10*3/uL (0.0-0.4); Hematocrit 33.3 % (37.0-47.0); Hemoglobin 10.1 g/dl (12.0-16.0); Imm Gran Abs Auto 0.03 X10*3/uL (0.00-0.03); Imm Gran Pct Auto 0.3 % (0.0-0.4); Lymphocytes Absolute Auto 2.4 X10*3/uL (1.2-4.9); Lymphocytes Percent Auto 26.4 % (20-40); Mean Corpuscular HGB Conc 30.3 g/dl (31.0-35.0); Mean Corpuscular Hemoglobin 23.8 pg (27.0-33.0); Mean Corpuscular Volume 78.4 fL (80.0-98.0); Monocytes Absolute Auto 0.6 X10*3/uL (0.1-1.2); Monocytes Percent Auto 6.3 % (2-11); Neutrophils Absolute Auto 6.1 x10*3/uL (2.0-8.3); Neutrophils Percent Auto 65.6 % (45-73); Platelet Count 370 X10*3/uL (160-400); Red Blood Count 4.25 X10*6/uL (4.20-5.50); Red Cell Distribution Width 18.1 % (11.0-16.0); White Blood Count 9.3 X10*3/uL (4.8-10.8)
[2023-11-01 14:05] LABS: Alanine Aminotransferase 14 U/L (0-31); Anion Gap 11 (12-20); Aspartate Amino Transferase 14 U/L (5-31); Blood Urea Nitrogen 14 mg/dL (9-16); Calcium 10.3 mg/dL (8.4-10.2); Carbon Dioxide 31 mmol/L (22-29); Chloride 104 mmol/L (96-108); Cholesterol 135 mg/dL (<200); Estimated Glomerular Filt Rate > 60; Glucose Fasting 96 mg/dL (60-99); HDL Cholesterol 41 mg/dL (>40); Iron 30 mcg/dL (30-160); LDL Cholesterol Calculated 77 mg/dL (<100); Percent Iron Saturation 9 % (15-50); Potassium 3.6 mmol/L (3.3-5.1); Sodium 142 mmol/L (135-145); Total Iron Binding Capacity 336 mcg/dL (228-428); Triglycerides 88 mg/dL (<150); Unsaturated Iron Binding 306 ug/dL
[2023-11-01 14:10] LABS: Vitamin D 25-OH Total 39.4 ng/mL (>30)
== END 2023-11-01 10:58 | disposition home or self-care (01) ==
LOC: HO.HMGCLDS 10:57
PROVIDERS: PCP Internal Medicine; Visit Provider Internal Medicine
DX: Z00.01 Encounter for general adult medical examination with abnormal findings (principal); E66.9 Obesity, unspecified; E78.5 Hyperlipidemia, unspecified; I10 Essential (primary) hypertension; E11.319 Type 2 diabetes mellitus with unspecified diabetic retinopathy without macular edema; K21.9 Gastro-esophageal reflux disease without esophagitis
CPT/HCPCS: 36415; 80048; 80061; 82306; 83540; 84450; 84460; 85025

== ENCOUNTER 2023-11-02 11:15 | Outpatient (AMB) | payer OTHER, SELFPAY ==
--- NOTE | 2023-11-02 11:12 | MHC.PC.OV ---
Intake Visit Reasons: f/u DM Andriod [phone] Allergies No Known Allergies Allergy (Verified 11/02/23 11:52) Medication List - Last Reconciled 11/02/23 by Kim Reynoso MD atorvastatin 40 mg PO DAILY blood sugar diagnostic (FreeStyle Lite Strips) As directed to test blood sugar 3x/day blood-glucose meter (FreeStyle [place] Lite kit) As directed to test blood sugar 3x/day blood-glucose meter,continuous (FreeStyle [place] 3 [place]) As directed blood-glucose sensor (FreeStyle Kwesi 3 Sensor device) As directed cyclosporine 0.05% (Restasis) drps ophthalmic (eye) ONCE fluocinonide 0.05% topical ibuprofen 800 mg PO Q8H PRN ketoconazole 2% 1 appl topical DAILY 10 days Lantus Solostar U-100 Insulin (insulin glargine) 44 units (0.44 mL) subcut QPM NS lidocaine 5% 1 patch topical DAILY lisinopril 10 mg PO DAILY metformin 1,000 mg PO BID Novolog FlexPen U-100 Insulin (insulin aspart U-100) 12 units (0.12 mL) subcut TID 30 days NS nystatin 1 appl topical BID omeprazole 40 mg PO DAILY pen needle, diabetic (UltiCare Pen Needle) use as directed QID , ac & HS 4 times a day; Tobacco use date assessed: 11/02/23 Dental Screening Dental Screen Date: 11/02/23 Did you have a dental visit in the last 12 months?: Yes Did you have a dental problem in the last 6 months where you did not have access to dental care?: No Was dental information given to patient?: Patient has dentist HPI f/u DM Andriod [phone] HPI Details 63 year old lady with past medical history ofdiabetes mellitus, hyperlipidemia, hypertension, obesity, chronic GERD, here today for follow-up. She has been compliant with taking medications, has changed her diet, has been eating less pasta, rice, meat and has been exercising regularly. Patient states that her fasting blood sugar in the mornings ranging usually less than 130 mg/dL. Latest fasting labs showed lipids, fasting blood sugar, electrolytes, liver enzymes and vitamin-D level within normal limits. Her CBC however showed presence anemia. Denies any unusual bleeding, last colonoscopy was done in 2014 with hyperplastic polyp removed by Dr. Jolley due again next year. 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 Daughter No problems noted. Social History Housing: House Alcohol intake: current Alcohol intake frequency: holidays/special occasions only Alcohol type: wine Patient Tobacco Use Status: Never used Tobacco e-Cigarette/Vaping Use: Never Used Second Hand Smoke Exposure: No Current occupational status: employed Cognitive needs: No Hearing needs: No Vision needs: Yes Questionnaire Thrive Questionnaire Date Thrive assessed: 07/19/23 [place]-7 AMB Questionnaire [place]-7 Date [place] - 7 assessed: 07/19/23 Source: Developed by Drs. Shankar Childress, Ruth Blank, Augustin Melara and colleagues, with an educational michelle from [employer]. Review of Systems Const Denies fatigue, Denies headache(s) and Denies malaise Eyes Details: Up-to-date with her diabetes retinopathy screening, done earlier this year ENT Denies headache(s) and Denies sore throat Card Denies chest pain, Denies irregular heart rhythm, Denies palpitations and Denies dyspnea Resp Denies cough and Denies dyspnea GI Denies constipation and Denies diarrhea Denies urinary frequency and Denies dysuria Musc Denies muscle cramps, Denies muscle weakness, Denies numbness and Denies tingling Skin/Breast Denies breast swelling, Denies breast skin changes, Denies breast pain, Denies breast mass and Denies rash Neuro Denies burning sensations, Denies headache(s), Denies numbness, Denies tingling and Denies paresthesias Psych Reports no additional complaints Endo Denies fatigue, Denies polydipsia, Denies polyuria and Denies palpitations Radames/Lymph Reports no additional complaints Aller/Immun Reports no additional complaints Physical exam (Primary Care) Tobacco/Smoking Status: Tobacco use Status Tobacco use date assessed 11/02/23 11/02/23 11:14 Patient Tobacco Use Status Never used Tobacco 11/02/23 11:14 e-Cigarette/Vaping Use Never Used 11/02/23 11:14 Thrive Assessment: Date of Thrive Assessment Date Thrive assessed 07/19/23 11/02/23 11:14 Telehealth Telehealth Telehealth Platform: [employer] Location of provider rendering services: practice address Location of patient: address on file Patient Identification confirmed using: Name, : Yes Telehealth method: video Patient verbally consented to treatment: Yes Patient verbally consented to billing insurance company: Yes Patient informed of any privacy concerns related to visit: Yes Minutes spent on Phone/Video with Pt.: 15 Results Reviewed Results Reviewed: cct#: [id number] Unit#: [id number] Attend Dr: Kim Reynoso MD Re11/01/23 Status: DEP REF Location: [facility] Disch: SPEC : [id number] RENETTA: 11/01/23 STATUS: COMP REQ : [id number] RECD: 11/01/[address]: Kim Reynoso MD COMP: 11/01/23 ENTERED: 11/01/[address]: ORDERED: CBC Auto Diff Test Result Flag Reference WBC 9.3 4.8-10.8 X10*3/uL RBC 4.25 4.20-5.50 X10*6/uL HGB 10.1 L 12.0-16.0 g/dl HCT 33.3 L 37.0-47.0 % MCV 78.4 L 80.0-98.0 fL MCH 23.8 L 27.0-33.0 pg MCHC 30.3 L 31.0-35.0 g/dl RDW 18.1 H 11.0-16.0 % PLT 370 160-400 X10*3/uL MPV 9.0 L 9.4-12.3 fL Neut Pct Auto 65.6 45-73 % ImGran Pct Auto 0.3 0.0-0.4 % Lymp Pct Auto 26.4 20-40 % Wilson Pct Auto 6.3 2-11 % Eos Pct Auto 1.0 0-4 % Baso Pct Auto 0.4 0-2 % NRBC Pct Auto 0.0 0.0-0.2 /100WBC ANC Neut Abs # 6.1 2.0-8.3 x10*3/uL ImGran Abs Auto 0.03 0.00-0.03 X10*3/uL Lymph Abs Auto 2.4 1.2-4.9 X10*3/uL Wilson Abs Auto 0.6 0.1-1.2 X10*3/uL Eos Abs Auto 0.1 0.0-0.4 X10*3/uL Baso Abs Auto 0.0 0.0-0.2 X10*3/uL NRBC Abs Auto 0.000 0.0-0.012 X10*3/uL anette: Hui Franco Age/Sex: 63/F : 1960 Unit#: [id number] Attend Dr: Kim Reynoso MD Re11/01/23 Status: DEP REF Location: [facility] Disch: SPEC : [id number] RENETTA: 11/01/23-1100 STATUS: COMP REQ : [id number] RECD: 11/01/23-[address]: Kim Reynoso MD COMP: 11/01/23-1410 ENTERED: 11/01/23-[address]: ORDERED: Met Prof Fast, IRON PROF, AST, ALT, Lipid Panel, Vitamin D 25-OH Test Result Flag Reference Sodium 142 135-145 mmol/L Potassium 3.6 3.3-5.1 mmol/L CL 104 96-108 mmol/L CO2 31 H 22-29 mmol/L Gap 11 L 12-20 BUN 14 9-16 mg/dL Creat 0.73 0.5-1.4 mg/dL EGFR > 60 NOTE: For -Serbian individuals, multiply the result by 1.210. Chronic Kidney Disease: Estimated GFR < 60 mL/min/1.73m2 Severe Kidney Disease: Estimated GFR < 15 mL/min/1.73m2 FBS 96 60-99 mg/dL CA 10.3 H 8.4-10.2 mg/dL Iron 30 30-160 mcg/dL TIBC 336 228-428 mcg/dL Saturation 9 L 15-50 % UIBC 306 ug/dL AST (GOT) 14 5-31 U/L ALT (GPT) 14 0-31 U/L Triglyceride 88 <150 mg/dL Desirable Triglyceride: less than 150 mg/dL Borderline High Triglyceride 150-199 mg/dL High Triglyceride: 200-499 mg/dL Very High Triglyceride: greater than or equal to 5OO mg/dL Cholesterol 135 <200 mg/dL Desirable Cholesterol: less than 200 mg/dL Borderline High Cholesterol: 200-239 mg/dL High Cholesterol: greater than 239 mg/dL LDL Calculated 77 <100 mg/dL Desirable LDL: less than 100 mg/dL Near Optimal/Above Optimal LDL: 110-129 mg/dL Borderline High LDL: 130-159 mg/dL High LDL: 160-189 mg/dL Very High LDL: greater than or equal to 190 mg/dL HDL 41 >40 mg/dL Desirable HDL: greater than 40 mg/dL Note: This HDL assay may give artificially low results in patients with liver disease. Vit D 25-OH Tot 39.4 >30 ng/mL Health Based Reference Values* < 20 ng/mL Deficient 20-30 ng/mL Insufficient > 30 ng/mL Sufficient Assessment and Plan Assessment & Plan (1) Anemia: Code(s): D64.9 - Anemia, unspecified Plan: Patient currently asymptomatic, will started on ferrous sulfate 325 mg to take 1 tablet once a day, take it with orange juice or vitamin-C tablets for better absorption, increase dietary intake of iron, lean meat, green leafy vegetables. 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 (3) HLD (hyperlipidemia): Code(s): E78.5 - Hyperlipidemia, unspecified Qualifiers: Hyperlipidemia type: unspecified Qualified Code(s): E78.5 - Hyperlipidemia, unspecified Plan: Reviewed recent fasting lipid profile with patient with levels within normal limits . Continue atorvastatin 40 mg daily , in addition to adherence to low-cholesterol diet and regular exercise, at least 30 minutes 3 to 4 times a week. Advised patient to make healthy food choices, eat more fruits, vegetables, whole grains, wild caught fish and low-fat dairy. Limit amount of meat and fried or fatty food products, as well as processed foods and fast foods. Follow-up scheduled with repeat fasting lipid panel in 3 months. Orders: Orders IRON PROFILE 01/13/24 D64.9 - Anemia, unspecified, E11.319 - Type 2 diabetes mellitus with unspecified diabetic retinopathy without macular edema, E11.65 - Type 2 diabetes mellitus with hyperglycemia, E66.9 - Obesity, unspecified, E78.5 - Hyperlipidemia, unspecified, I10 - Essential (primary) hypertension, Z79.4 - detention (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 of insulin Alanine Aminotransferase 01/13/24 D64.9 - Anemia, unspecified, E11.319 - Type 2 diabetes mellitus with unspecified diabetic retinopathy without macular edema, E11.65 - Type 2 diabetes mellitus with hyperglycemia, E66.9 - Obesity, unspecified, E78.5 - Hyperlipidemia, unspecified, I10 - Essential (primary) hypertension, Z79.4 - detention (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 of insulin Hemoglobin A1c 01/13/24 D64.9 - Anemia, unspecified, E11.319 - Type 2 diabetes mellitus with unspecified diabetic retinopathy without macular edema, E11.65 - Type 2 diabetes mellitus with hyperglycemia, E66.9 - Obesity, unspecified, E78.5 - Hyperlipidemia, unspecified, I10 - Essential (primary) hypertension, Z79.4 - detention (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 of insulin Basic Metabolic Panel Fasting 01/13/24 D64.9 - Anemia, unspecified, E11.319 - Type 2 diabetes mellitus with unspecified diabetic retinopathy without macular edema, E11.65 - Type 2 diabetes mellitus with hyperglycemia, E66.9 - Obesity, unspecified, E78.5 - Hyperlipidemia, unspecified, I10 - Essential (primary) hypertension, Z79.4 - detention (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 of insulin Lipid Panel 01/13/24 D64.9 - Anemia, unspecified, E11.319 - Type 2 diabetes mellitus with unspecified diabetic retinopathy without macular edema, E11.65 - Type 2 diabetes mellitus with hyperglycemia, E66.9 - Obesity, unspecified, E78.5 - Hyperlipidemia, unspecified, I10 - Essential (primary) hypertension, Z79.4 - detention (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 of insulin Aspartate Amino Transferase 01/13/24 D64.9 - Anemia, unspecified, E11.319 - Type 2 diabetes mellitus with unspecified diabetic retinopathy without macular edema, E11.65 - Type 2 diabetes mellitus with hyperglycemia, E66.9 - Obesity, unspecified, E78.5 - Hyperlipidemia, unspecified, I10 - Essential (primary) hypertension, Z79.4 - terminal press operator (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 of insulin Complete Blood Count Auto Diff 01/13/24 D64.9 - Anemia, unspecified, E11.319 - Type 2 diabetes mellitus with unspecified diabetic retinopathy without macular edema, E11.65 - Type 2 diabetes mellitus with hyperglycemia, E66.9 - Obesity, unspecified, E78.5 - Hyperlipidemia, unspecified, I10 - Essential (primary) hypertension, Z79.4 - terminal press operator (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 of insulin Vitamin D 25-OH Total 01/13/24 D64.9 - Anemia, unspecified, E11.319 - Type 2 diabetes mellitus with unspecified diabetic retinopathy without macular edema, E11.65 - Type 2 diabetes mellitus with hyperglycemia, E66.9 - Obesity, unspecified, E78.5 - Hyperlipidemia, unspecified, I10 - Essential (primary) hypertension, Z79.4 - terminal press operator (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 of insulin Medications: New ferrous fumarate 325 mg PO DAILY 90 tabs 2RF D64.9 - Anemia, unspecified Refilled Lantus Solostar U-100 Insulin (insulin glargine) 44 units (0.44 mL) subcut QPM 45 mL 5RF NS E11.65 - Type 2 diabetes mellitus with hyperglycemia, Z79.4 - detention (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 of insulin Novolog FlexPen U-100 Insulin (insulin aspart U-100) 12 units (0.12 mL) subcut TID 30 days 15 mL 4RF NS E11.29 - Type 2 diabetes mellitus with other diabetic kidney complication, E11.319 - Type 2 diabetes mellitus with unspecified diabetic retinopathy without macular edema, E11.65 - Type 2 diabetes mellitus with hyperglycemia, R80.9 - Proteinuria, unspecified, Z79.4 - detention (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 of insulin atorvastatin 40 mg PO DAILY 90 tabs 3RF E11.65 - Type 2 diabetes mellitus with hyperglycemia, Z79.4 - terminal press operator (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 of insulin lisinopril 10 mg PO DAILY 90 tabs 3RF E11.65 - Type 2 diabetes mellitus with hyperglycemia, I10 - Essential (primary) hypertension, Z79.4 - terminal press operator (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 of insulin Coding Level of Care Code Tele Est Pt Level 4 (66332) Complex EM visit Add On G2211 Diagnoses Anemia D64.9 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
== END 2023-11-02 13:55 | disposition home or self-care (01) ==
LOC: HO.HMCC 11:15
PROVIDERS: PCP Internal Medicine; Visit Provider Internal Medicine
DX: D64.9 Anemia, unspecified (principal); E11.319 Type 2 diabetes mellitus with unspecified diabetic retinopathy without macular edema; E78.5 Hyperlipidemia, unspecified

== ENCOUNTER → 2023-11-02 11:15 | Outpatient (BNVA) | payer OTHER, SELFPAY | PROVIDERS: PCP Internal Medicine; Visit Provider Internal Medicine ==

== ENCOUNTER 2024-01-30 10:01 | Outpatient (REF) | payer OTHER, SELFPAY ==
[2024-01-30 13:25] LABS: MANUAL DIFF FLAG NO
[2024-01-30 13:36] LABS: Basophils Absolute Auto 0.1 X10*3/uL (0.0-0.2); Basophils Percent Auto 0.7 % (0-2); Eosinophils Absolute Auto 0.1 X10*3/uL (0.0-0.4); Eosinophils Percent Auto 1.3 % (0-4); Hematocrit 32.8 % (37.0-47.0); Imm Gran Abs Auto 0.05 X10*3/uL (0.00-0.03); Imm Gran Pct Auto 0.5 % (0.0-0.4); Lymphocytes Absolute Auto 2.5 X10*3/uL (1.2-4.9); Lymphocytes Percent Auto 25.3 % (20-40); Mean Corpuscular HGB Conc 30.5 g/dl (31.0-35.0); Mean Corpuscular Hemoglobin 24.3 pg (27.0-33.0); Mean Corpuscular Volume 79.6 fL (80.0-98.0); Mean Platelet Volume 9.4 fL (9.4-12.3); Monocytes Absolute Auto 0.6 X10*3/uL (0.1-1.2); Monocytes Percent Auto 5.6 % (2-11); Neutrophils Absolute Auto 6.7 x10*3/uL (2.0-8.3); Neutrophils Percent Auto 66.6 % (45-73); Platelet Count 384 X10*3/uL (160-400); Red Blood Count 4.12 X10*6/uL (4.20-5.50); Red Cell Distribution Width 17.2 % (11.0-16.0)
[2024-01-30 13:42] LABS: Estimated Average Glucose 203 mg/dL; Hemoglobin A1C 176.8663 umol/L; Hemoglobin A1c % 8.7 % (<6.0)
[2024-01-30 14:05] LABS: Alanine Aminotransferase 16 U/L (0-31); Anion Gap 11 (12-20); Aspartate Amino Transferase 21 U/L (5-31); Blood Urea Nitrogen 12 mg/dL (9-16); Calcium 9.1 mg/dL (8.4-10.2); Carbon Dioxide 29 mmol/L (22-29); Chloride 105 mmol/L (96-108); Cholesterol 131 mg/dL (<200); Estimated Glomerular Filt Rate > 60; Glucose Fasting 106 mg/dL (60-99); HDL Cholesterol 34 mg/dL (>40); Iron 30 mcg/dL (30-160); LDL Cholesterol Calculated 76 mg/dL (<100); Percent Iron Saturation 8 % (15-50); Potassium 3.8 mmol/L (3.3-5.1); Sodium 141 mmol/L (135-145); Total Iron Binding Capacity 353 mcg/dL (228-428); Triglycerides 109 mg/dL (<150); Unsaturated Iron Binding 323 ug/dL
[2024-01-30 14:09] LABS: Vitamin D 25-OH Total 28.8 ng/mL (>30)
== END 2024-01-30 10:02 | disposition home or self-care (01) ==
LOC: HO.HMGCLDS 10:01
PROVIDERS: PCP Internal Medicine; Visit Provider Internal Medicine
DX: D64.9 Anemia, unspecified (principal); E66.9 Obesity, unspecified; E78.5 Hyperlipidemia, unspecified; I10 Essential (primary) hypertension; E11.319 Type 2 diabetes mellitus with unspecified diabetic retinopathy without macular edema; E11.65 Type 2 diabetes mellitus with hyperglycemia; Z79.4 Long term (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 of insulin
CPT/HCPCS: 36415; 80048; 80061; 82306; 83036; 83540; 84450; 84460; 85025

== ENCOUNTER 2024-01-31 15:41 | Outpatient (AMB) | payer OTHER, SELFPAY ==
[2024-01-31 16:13] VITALS: BP 124/64; PULSE 73; O2SAT 97; BMI 29.8
--- NOTE | 2024-01-31 16:13 | MHC.PC.OV ---
Vital Signs 01/31/24 16:13 Height 5 ft 8 in Weight 196 lb BMI 29.8 BP 124/64 Blood Pressure Location Lt brachial Position Sitting Pulse 73 Pulse Source Pulse Oximeter Pulse Oximetry (%) 97 Oxygen Delivery Method Room Air Intake Visit Reasons: ffup dm ,lipids, htn , anemia after labs Intake Note: Pt is here today for f/u DM,lipids,HTN and labs Allergies No Known Allergies Allergy (Verified 01/31/24 16:26) Medication List - Last Reconciled 01/31/24 by Kim Reynoso MD atorvastatin 40 mg PO DAILY blood sugar diagnostic (FreeStyle Lite Strips) As directed to test blood sugar 3x/day blood-glucose meter (FreeStyle [place] Lite kit) As directed to test blood sugar 3x/day blood-glucose meter,continuous (FreeStyle Kwesi 3 [place]) As directed blood-glucose sensor (FreeStyle Kwesi 3 Sensor device) As directed cyclosporine 0.05% (Restasis) drps ophthalmic (eye) ONCE ferrous fumarate 325 mg PO DAILY fluocinonide 0.05% topical ibuprofen 800 mg PO Q8H PRN ketoconazole 2% 1 appl topical DAILY 10 days Lantus Solostar U-100 Insulin (insulin glargine) 44 units (0.44 mL) subcut QPM NS lidocaine 5% 1 patch topical DAILY lisinopril 10 mg PO DAILY metformin 1,000 mg PO BID Novolog FlexPen U-100 Insulin (insulin aspart U-100) 12 units (0.12 mL) subcut TID 30 days NS nystatin 1 appl topical BID omeprazole 40 mg PO DAILY pen needle, diabetic (UltiCare Pen Needle) use as directed QID , ac & HS 4 times a day; Tobacco use date assessed: 01/31/24 Dental Screening Dental Screen Date: 01/31/24 Did you have a dental visit in the last 12 months?: Yes Did you have a dental problem in the last 6 months where you did not have access to dental care?: No Was dental information given to patient?: Patient has dentist HPI ffup dm ,lipids, htn , anemia after labs HPI Details - The patient is a 63-year-old female here for follow-up on her Type 2 Diabetes Mellitus, dyslipidemia, and hypertension. a - Recently noted weight loss achieved through dietary changes and increased physical activity.. - diabetes mellitus however is uncontrolled with latest hemoglobin A1c up to 8.7% from 7.3% on last visit. She takes insulin (Lantus 44 units at night) and Metformin twice daily. Morning blood sugar levels are usually less than 130 but is higher at the end of the day.. - Anemia: - Persisting despite increased dietary intake of red meat and liver. Hemoglobin level remains at 10. No reported shortness of breath, chest pain, palpitations or lightheadedness. - Vitamin D Deficiency identified with low vitamin D levels. - Diabetic Retinopathy with macular edema noted on last eye exam. 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 Daughter No problems noted. Social History Housing: House Alcohol intake: current Alcohol intake frequency: holidays/special occasions only Alcohol type: wine Patient Tobacco Use Status: Never used Tobacco e-Cigarette/Vaping Use: Never Used Second Hand Smoke Exposure: No Current occupational status: employed Cognitive needs: No Hearing needs: No Vision needs: Yes Questionnaire PHQ-9 Over the last 2 weeks, how often have you been bothered by any of the following problems? 1. Little interest or pleasure in doing things: not at all 2. Feeling down, depressed, or hopeless: not at all 3. Trouble falling or staying asleep, or sleeping too much: not at all 4. Feeling tired or having little energy: not at all 5. Poor appetite or overeating: not at all 6. Feeling bad about yourself - or that you are a failure or have let yourself or your family down: not at all 7. Trouble concentrating on things, such as reading the newspaper or watching television: not at all 8. Moving or speaking so slowly that other people could have noticed. Or the opposite - being so fidgety or restless that you have been moving around a lot more than usual: not at all 9. Thoughts that you would be better off or of hurting yourself in some way: not at all Total score: 0 Depression Screening Interpretation: Negative Depression Screening Done: Yes Source: Developed by Drs. Shankar Childress, Ruth Blank, Augustin Melara and colleagues, with an educational michelle from [employer]. Thrive Questionnaire Date Thrive assessed: 07/19/23 I am a: Patient What is your living situation today?: I have a steady place to live Within the past 12 months, did the food you bought not last and you didn't have the money to get more?: I choose not to answer this question Within the past 12 months, did you worry whether your food would run out before you got money to buy more?: Never true Do you have trouble paying for medicines?: No Do you have trouble getting transportation to medical appointments?: No Do you have trouble paying your heating and electricity bill?: No Do you have trouble taking care of your child, family member or friend?: No Do you have trouble with day-to-day activities such as bathing, preparing meals, shopping, managing finances, etc.?: No Are you currently unemployed and looking for a job?: No Are you interested in more education?: No Please select the resources that you would like help with: None Currently or been in a relationship where the following occur: I choose not to answer THRIVE Score: 0 AUDIT C Alcohol Use Questionnaire (AUDIT-C) 1. How often do you have a drink containing alcohol?: Never Total Score: 0 KINGSTON-7 AMB Questionnaire KINGSTON-7 Date KINGSTON - 7 assessed: 07/19/23 Feeling nervous, anxious, or on edge: 0 = Not at all Not being able to stop or control worryin = Not at all Worrying too much about different things: 0 = Not at all Trouble relaxin = Not at all Being so restless that it is hard to sit still: 0 = Not at all Becoming easily annoyed or irritable: 0 = Not at all Feeling afraid as if something awful might happen: 0 = Not at all Total KINGSTON-7 score (0-4 normal; 5-9 mild; 10-14 moderate; 15-21 severe): 0 Source: Developed by Drs. Shankar Childress, Ruth Blank, Augustin Melara and colleagues, with an educational michelle from [employer]. Review of Systems Const Denies fatigue, Denies headache(s) and Denies malaise Eyes Details: Up-to-date with her diabetes retinopathy screening, done earlier this year ENT Denies headache(s) and Denies sore throat Card Denies chest pain, Denies irregular heart rhythm, Denies palpitations and Denies dyspnea Resp Denies cough and Denies dyspnea GI Denies constipation and Denies diarrhea Denies urinary frequency and Denies dysuria Musc Denies muscle cramps, Denies muscle weakness, Denies numbness and Denies tingling Neuro Denies burning sensations, Denies headache(s), Denies numbness, Denies tingling and Denies paresthesias Psych Reports no additional complaints Endo Denies fatigue, Denies polydipsia, Denies polyuria and Denies palpitations Radames/Lymph Reports no additional complaints Aller/Immun Reports no additional complaints Physical exam (Primary Care) Vital Signs: Last Vital Signs Pulse 73 01/31/24 16:13 BP 124/64 01/31/24 16:13 Pulse Ox 97 01/31/24 16:13 Oxygen Delivery Method Room Air 01/31/24 16:13 BMI result Body Mass Index 29.8 Tobacco/Smoking Status: Tobacco use Status Tobacco use date assessed 01/31/24 01/31/24 16:20 Patient Tobacco Use Status Never used Tobacco 01/31/24 16:15 e-Cigarette/Vaping Use Never Used 01/31/24 16:15 PHQ-9: PHQ-9 Score PHQ-9: Total score 0 02/03/24 13:37 Depression Screening Interpretation: Negative Thrive Assessment: Date of Thrive Assessment Date Thrive assessed 07/19/23 01/31/24 16:15 Currently or been in a relationship where the following occur: I choose not to answer Const General: no acute distress Nutritional Appearance: obese Orientation/consciousness: patient oriented x3 HENMT Ears: external ears normal General nose exam: Normal external nose present Mouth: oropharynx normal and moist mucous membranes Eyes General: appearance normal, both eyes and all related structures Conjunctivae: conjunctivae normal Pupils: Equal, round and reactive pupils present EOM: EOMs intact bilaterally Neck Neck: Yes full ROM, Yes no lymphadenopathy and Yes supple Chest Breast/axilla inspection: normal inspection of the breasts Breast/axilla palpation: normal palpation of the breasts Resp Effort & Inspection: normal respiratory effort and able to speak in complete sentences Auscultation: clear to auscultation bilaterally Cardio Rate: regular rate Rhythm: regular rhythm Heart sounds: S1 normal heart sound present and S2 normal heart sound present GI Inspection: Yes normal to inspection Palpation (GI): Soft to palpation, nontender and no masses Auscultation: normal bowel sounds General: Yes no CVA tenderness Back/Spine/Pelvis Back: no CVA tenderness Skin General skin exam: no rashes or lesions noted Neuro General: patient oriented x3, gait normal, tone normal, moves all extremities, Normal light touch and pain sensation and no focal motor deficits Cranial nerves: Yes Equal, round and reactive pupils present Cognition (Neuro): normal cognition Gait exam (Neuro): Normal gait present Motor exam (neuro): 5/5 motor strength present throughout Extrem General: Yes normal to inspection, Yes full ROM, Yes normal exam except as noted, Yes no joint enlargement, Yes no clubbing, cyanosis or edema, Yes no calf tenderness and Yes normal gait Psych Appearance: grossly normal and well kempt Mental Status: mental status grossly normal Speech and movement: Normal speech and movement present Affect: normal affect Attitude: cooperative Thought process: Normal thought process present Thought content: Normal thought content present Office Procedures Flu Questionnaire Does the patient have a severe egg allergy?: No Does the patient have severe life threatening allergies?: No Does the patient have a fever or illness today?: No Has the patient ever had Guillain-[place] Syndrome?: No Has the patient ever had any past reaction to a flu shot?: No Immunizations Fluarix Triv 9145-2213 (PF) 45 mcg (15 mcg x 3)/0.5 mL IM syringe Performing Provider: Kim Reynoso MD Performing [place] [facility] Administered by: Jessica Coppola CMA on 01/31/24 16:42 Dose Route Admin Location Dispensed Lot Number Expiration Date NDC Grants Specialist 0.5 mL IM Left Deltoid 0.5 mL [id number] 08/11/24 [id number] [employer] VIS Given Date VIS Provided VIS Publication Date 01/31/24 Single Vaccine 20 Eligibility Eligibility Date Funding Source Not VFC Eligible 01/31/24 Private Results Reviewed Results Reviewed: Name: Hui Franco Age/Sex: 63/F : 1960 Unit#: [id number] Attend Dr: Kim Reynoso MD Re01/30/24 Status: DEP REF Location: [facility] Disch: SPEC : [id number] RENETTA: 01/30/24 STATUS: COMP REQ : [id number] RECD: 01/30/[address]: Kim Reynoso MD COMP: 01/30/24 ENTERED: 01/30/[address]: ORDERED: CBC Auto Diff Test Result Flag Reference WBC 10.0 4.8-10.8 X10*3/uL RBC 4.12 L 4.20-5.50 X10*6/uL HGB 10.0 L 12.0-16.0 g/dl HCT 32.8 L 37.0-47.0 % MCV 79.6 L 80.0-98.0 fL MCH 24.3 L 27.0-33.0 pg MCHC 30.5 L 31.0-35.0 g/dl RDW 17.2 H 11.0-16.0 % PLT 384 160-400 X10*3/uL MPV 9.4 9.4-12.3 fL Neut Pct Auto 66.6 45-73 % ImGran Pct Auto 0.5 H 0.0-0.4 % Lymp Pct Auto 25.3 20-40 % Maverick Pct Auto 5.6 2-11 % Eos Pct Auto 1.3 0-4 % Baso Pct Auto 0.7 0-2 % NRBC Pct Auto 0.0 0.0-0.2 /100WBC ANC Neut Abs # 6.7 2.0-8.3 x10*3/uL ImGran Abs Auto 0.05 H 0.00-0.03 X10*3/uL Lymph Abs Auto 2.5 1.2-4.9 X10*3/uL Maverick Abs Auto 0.6 0.1-1.2 X10*3/uL Eos Abs Auto 0.1 0.0-0.4 X10*3/uL Baso Abs Auto 0.1 0.0-0.2 X10*3/uL NRBC Abs Auto 0.000 0.0-0.012 X10*3/uL Name: Hui Franco Age/Sex: 63/F : 1960 Unit#: [id number] Attend Dr: Kim Reynoso MD Re01/30/24 Status: DEP REF Location: [facility] Disch: SPEC : [id number] RENETTA: 01/30/24 STATUS: COMP REQ : [id number] RECD: 01/30/24-[address]: Kim Reynoso MD COMP: 01/30/24 ENTERED: 01/30/24-[address]: ORDERED: Met Prof Fast, IRON PROF, AST, ALT, Lipid Panel, Vitamin D 25-OH Test Result Flag Reference Sodium 141 135-145 mmol/L Potassium 3.8 3.3-5.1 mmol/L CL 105 96-108 mmol/L CO2 29 22-29 mmol/L Gap 11 L 12-20 BUN 12 9-16 mg/dL Creat 0.67 0.5-1.4 mg/dL eGFR > 60 Chronic Kidney Disease: Estimated GFR < 60 mL/min/1.73m2 Severe Kidney Disease: Estimated GFR < 15 mL/min/1.73m2 FBS 106 H 60-99 mg/dL A fasting glucose from 100-125 mg/dl is considered impaired (pre-diabetes). CA 9.1 # 8.4-10.2 mg/dL Iron 30 30-160 mcg/dL TIBC 353 228-428 mcg/dL Saturation 8 L 15-50 % UIBC 323 ug/dL AST (GOT) 21 5-31 U/L ALT (GPT) 16 0-31 U/L Triglyceride 109 <150 mg/dL Desirable Triglyceride: less than 150 mg/dL Borderline High Triglyceride 150-199 mg/dL High Triglyceride: 200-499 mg/dL Very High Triglyceride: greater than or equal to 5OO mg/dL Cholesterol 131 <200 mg/dL Desirable Cholesterol: less than 200 mg/dL Borderline High Cholesterol: 200-239 mg/dL High Cholesterol: greater than 239 mg/dL LDL Calculated 76 <100 mg/dL Desirable LDL: less than 100 mg/dL Near Optimal/Above Optimal LDL: 110-129 mg/dL Borderline High LDL: 130-159 mg/dL High LDL: 160-189 mg/dL Very High LDL: greater than or equal to 190 mg/dL HDL 34 L >40 mg/dL Desirable HDL: greater than 40 mg/dL Note: This HDL assay may give artificially low results in patients with liver disease. 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 Hypertension, unspecified type I10 Hypertension type: unspecified Anemia D64.9 Assessment & Plan Assessment & Plan (1) 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: Code(s): E11.319 - Type 2 diabetes mellitus with unspecified diabetic retinopathy without macular edema Category: Medical Plan: take lantus in am instead of at bedtime (2) HLD (hyperlipidemia): Code(s): E78.5 - Hyperlipidemia, unspecified Category: Medical Qualifiers: Hyperlipidemia type: unspecified Qualified Code(s): E78.5 - Hyperlipidemia, unspecified (3) HTN (hypertension): Code(s): I10 - Essential (primary) hypertension Category: Medical Qualifiers: Hypertension type: unspecified Qualified Code(s): I10 - Essential (primary) hypertension (4) Anemia: Code(s): D64.9 - Anemia, unspecified Category: Medical Plan - adjust the timing of Lantus administration from evening to morning to better control blood sugar levels. Reinforced importance of following recommended diet and getting regular exercise. - Review blood sugar levels again in three months, repeat hemoglobin A1c ordered -ferrous fumarate 325 mg taken 1 tablet daily prescribed repeat CBC again and iron profile in 3 months. Ordered hemoglobin electrophoresis - currently on cyclosporine 0.05% eyedrops for dry eye syndrome and continue with yearly diabetes retinopathy screening and eye exam. -has vitamin-D deficiency get him started on cholecalciferol 82067 units per capsule take once a week for the next 3 months - Administer flu vaccination today reminded to get updated COVID booster and shingles vaccination - Regular follow-up in three months with complete blood work repeat before the visit. Patient was informed and verbally consented to the use of an ambient scribe for clinic note documentation during this visit. Orders: Orders Influenza [id number] Immunization 01/31/24 Z23 - Encounter for immunization IRON PROFILE 04/12/24 D64.9 - Anemia, unspecified, E11.29 - Type 2 diabetes mellitus with other diabetic kidney complication, E11.319 - Type 2 diabetes mellitus with unspecified diabetic retinopathy without macular edema, E11.65 - Type 2 diabetes mellitus with hyperglycemia, E66.9 - Obesity, unspecified, E78.5 - Hyperlipidemia, unspecified, I10 - Essential (primary) hypertension, R80.9 - Proteinuria, unspecified, Z79.4 - [facility] (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 of insulin Hemoglobin Electrophoresis 04/12/24 D64.9 - Anemia, unspecified, E11.29 - Type 2 diabetes mellitus with other diabetic kidney complication, E11.319 - Type 2 diabetes mellitus with unspecified diabetic retinopathy without macular edema, E11.65 - Type 2 diabetes mellitus with hyperglycemia, E66.9 - Obesity, unspecified, E78.5 - Hyperlipidemia, unspecified, I10 - Essential (primary) hypertension, R80.9 - Proteinuria, unspecified, Z79.4 - [facility] (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 of insulin Lipid Panel 04/12/24 D64.9 - Anemia, unspecified, E11.29 - Type 2 diabetes mellitus with other diabetic kidney complication, E11.319 - Type 2 diabetes mellitus with unspecified diabetic retinopathy without macular edema, E11.65 - Type 2 diabetes mellitus with hyperglycemia, E66.9 - Obesity, unspecified, E78.5 - Hyperlipidemia, unspecified, I10 - Essential (primary) hypertension, R80.9 - Proteinuria, unspecified, Z79.4 - coordinator cardiopulmonary services (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 of insulin Complete Blood Count Auto Diff 04/12/24 D64.9 - Anemia, unspecified, E11.29 - Type 2 diabetes mellitus with other diabetic kidney complication, E11.319 - Type 2 diabetes mellitus with unspecified diabetic retinopathy without macular edema, E11.65 - Type 2 diabetes mellitus with hyperglycemia, E66.9 - Obesity, unspecified, E78.5 - Hyperlipidemia, unspecified, I10 - Essential (primary) hypertension, R80.9 - Proteinuria, unspecified, Z79.4 - coordinator cardiopulmonary services (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 of insulin Alanine Aminotransferase 04/12/24 D64.9 - Anemia, unspecified, E11.29 - Type 2 diabetes mellitus with other diabetic kidney complication, E11.319 - Type 2 diabetes mellitus with unspecified diabetic retinopathy without macular edema, E11.65 - Type 2 diabetes mellitus with hyperglycemia, E66.9 - Obesity, unspecified, E78.5 - Hyperlipidemia, unspecified, I10 - Essential (primary) hypertension, R80.9 - Proteinuria, unspecified, Z79.4 - [facility] (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 of insulin Aspartate Amino Transferase 04/12/24 D64.9 - Anemia, unspecified, E11.29 - Type 2 diabetes mellitus with other diabetic kidney complication, E11.319 - Type 2 diabetes mellitus with unspecified diabetic retinopathy without macular edema, E11.65 - Type 2 diabetes mellitus with hyperglycemia, E66.9 - Obesity, unspecified, E78.5 - Hyperlipidemia, unspecified, I10 - Essential (primary) hypertension, R80.9 - Proteinuria, unspecified, Z79.4 - coordinator cardiopulmonary services (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 of insulin Hemoglobin A1c 04/12/24 D64.9 - Anemia, unspecified, E11.29 - Type 2 diabetes mellitus with other diabetic kidney complication, E11.319 - Type 2 diabetes mellitus with unspecified diabetic retinopathy without macular edema, E11.65 - Type 2 diabetes mellitus with hyperglycemia, E66.9 - Obesity, unspecified, E78.5 - Hyperlipidemia, unspecified, I10 - Essential (primary) hypertension, R80.9 - Proteinuria, unspecified, Z79.4 - coordinator cardiopulmonary services (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 of insulin Microalbumin, Random (w Creat) 04/12/24 D64.9 - Anemia, unspecified, E11.29 - Type 2 diabetes mellitus with other diabetic kidney complication, E11.319 - Type 2 diabetes mellitus with unspecified diabetic retinopathy without macular edema, E11.65 - Type 2 diabetes mellitus with hyperglycemia, E66.9 - Obesity, unspecified, E78.5 - Hyperlipidemia, unspecified, I10 - Essential (primary) hypertension, R80.9 - Proteinuria, unspecified, Z79.4 - coordinator cardiopulmonary services (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 of insulin Vitamin D 25-OH Total 04/12/24 D64.9 - Anemia, unspecified, E11.29 - Type 2 diabetes mellitus with other diabetic kidney complication, E11.319 - Type 2 diabetes mellitus with unspecified diabetic retinopathy without macular edema, E11.65 - Type 2 diabetes mellitus with hyperglycemia, E66.9 - Obesity, unspecified, E78.5 - Hyperlipidemia, unspecified, I10 - Essential (primary) hypertension, R80.9 - Proteinuria, unspecified, Z79.4 - coordinator cardiopulmonary services (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 of insulin Medications: New cholecalciferol (vitamin D3) 1,250 mcg PO QWEEK 3 months 13 caps 0RF
== END 2024-01-31 16:49 | disposition home or self-care (01) ==
PROVIDERS: PCP Internal Medicine; Visit Provider Internal Medicine
DX: Z23 Encounter for immunization (principal)

== ENCOUNTER → 2024-01-31 15:41 | Outpatient (BNVA) | payer OTHER, SELFPAY | PROVIDERS: PCP Internal Medicine; Visit Provider Internal Medicine | DX: E11.319 Type 2 diabetes mellitus with unspecified diabetic retinopathy without macular edema (principal); E11.65 Type 2 diabetes mellitus with hyperglycemia; E78.5 Hyperlipidemia, unspecified; I10 Essential (primary) hypertension; D64.9 Anemia, unspecified; E55.9 Vitamin D deficiency, unspecified; E66.9 Obesity, unspecified; R80.9 Proteinuria, unspecified; Z23 Encounter for immunization; Z79.4 Long term (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 of insulin; Z79.84 Long term (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 of oral hypoglycemic drugs; Z79.899 Other long term (current) drug therapy | CPT/HCPCS: 90471; 90656; 99212 ==

== ENCOUNTER 2024-05-05 09:44 | Outpatient (REF) | payer OTHER, SELFPAY ==
[2024-05-05 13:29] LABS: MANUAL DIFF FLAG NO
[2024-05-05 13:41] LABS: Basophils Absolute Auto 0.1 X10*3/uL (0.0-0.2); Basophils Percent Auto 0.6 % (0-2); Eosinophils Absolute Auto 0.1 X10*3/uL (0.0-0.4); Hematocrit 34.7 % (37.0-47.0); Hemoglobin 10.6 g/dl (12.0-16.0); Imm Gran Abs Auto 0.01 X10*3/uL (0.00-0.03); Imm Gran Pct Auto 0.1 % (0.0-0.4); Lymphocytes Absolute Auto 2.2 X10*3/uL (1.2-4.9); Lymphocytes Percent Auto 26.5 % (20-40); Mean Corpuscular HGB Conc 30.5 g/dl (31.0-35.0); Mean Corpuscular Hemoglobin 24.6 pg (27.0-33.0); Mean Corpuscular Volume 80.5 fL (80.0-98.0); Mean Platelet Volume 9.8 fL (9.4-12.3); Monocytes Absolute Auto 0.4 X10*3/uL (0.1-1.2); Monocytes Percent Auto 4.4 % (2-11); Neutrophils Absolute Auto 5.7 x10*3/uL (2.0-8.3); Neutrophils Percent Auto 67.4 % (45-73); Platelet Count 352 X10*3/uL (160-400); Red Blood Count 4.31 X10*6/uL (4.20-5.50); White Blood Count 8.4 X10*3/uL (4.8-10.8)
[2024-05-05 13:47] LABS: Estimated Average Glucose 194 mg/dL; Hemoglobin A1C 191.2268 umol/L; Hemoglobin A1c % 8.4 % (<6.0)
[2024-05-05 13:59] LABS: Alanine Aminotransferase 18 U/L (0-31); Aspartate Amino Transferase 30 U/L (5-31); Cholesterol 105 mg/dL (<200); HDL Cholesterol 34 mg/dL (>40); Iron 30 mcg/dL (30-160); LDL Cholesterol Calculated 55 mg/dL (<100); Percent Iron Saturation 9 % (15-50); Total Iron Binding Capacity 352 mcg/dL (228-428); Triglycerides 80 mg/dL (<150); Unsaturated Iron Binding 322 ug/dL
[2024-05-05 14:09] LABS: Vitamin D 25-OH Total 41.6 ng/mL (>30)
[2024-05-05 14:11] LABS: Creatinine Urine 55.06 mg/dL; Microalbumin Urine < 5.0 mg/L
[2024-05-12 14:18] LABS: Hematocrit 34.7 % (35.0-45.0); Hemoglobin 10.6 g/dL (11.7-15.5); MCH 24.2 pg (27.0-33.0); MCV 79.2 fL (80.0-100.0); RBC 4.38 Million/uL (3.80-5.10); RDW 16.7 % (11.0-15.0)
== END 2024-05-05 09:45 | disposition home or self-care (01) ==
LOC: HO.HMGCLDS 09:44
PROVIDERS: PCP Internal Medicine; Visit Provider Internal Medicine
DX: Z01.818 Encounter for other preprocedural examination (principal); E11.3393 Type 2 diabetes mellitus with moderate nonproliferative diabetic retinopathy without macular edema, bilateral; I10 Essential (primary) hypertension; E78.5 Hyperlipidemia, unspecified; E66.9 Obesity, unspecified; K21.9 Gastro-esophageal reflux disease without esophagitis; D64.9 Anemia, unspecified; E11.65 Type 2 diabetes mellitus with hyperglycemia; E11.29 Type 2 diabetes mellitus with other diabetic kidney complication; R80.9 Proteinuria, unspecified; Z79.4 Long term (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 of insulin; Z79.899 Other long term (current) drug therapy
CPT/HCPCS: 36415; 80061; 82043; 82306; 82570; 83020; 83036; 83540; 84450; 84460; 85014; 85018; 85025; 85041; 96127; 99212

== ENCOUNTER 2024-05-05 10:07 | Outpatient (AMB) | payer OTHER, SELFPAY ==
--- NOTE | 2024-05-05 10:45 | MHC.PC.OV ---
Vital Signs 05/05/24 10:46 Height 5 ft 8 in Weight 199 lb BMI 30.3 BP 132/72 Blood Pressure Location Rt brachial Position Sitting Respiration 16 Pulse 66 Pulse Source Pulse Oximeter Temp 98.1 F Temp Source Oral Pulse Oximetry (%) 96 Oxygen Delivery Method Room Air Intake Visit Reasons: Lt eye cataract surgery Intake Note: Pt is here today for her pre-op for Lt eye cataract surgery with stent Dr. Mclaughlin 06/04/24 Allergies No Known Allergies Allergy (Verified 05/05/24 11:11) Medication List - Last Reconciled 05/05/24 by Kim Reynoso MD atorvastatin 40 mg PO DAILY blood sugar diagnostic (FreeStyle Lite Strips) As directed to test blood sugar 3x/day blood-glucose meter (FreeStyle Tell Lite kit) As directed to test blood sugar 3x/day blood-glucose meter,continuous (FreeStyle Kwesi 3 Mcclusky) As directed blood-glucose sensor (FreeStyle Kwesi 3 Sensor device) As directed cholecalciferol (vitamin D3) 1,250 mcg PO QWEEK 3 months cyclosporine 0.05% (Restasis) drps ophthalmic (eye) ONCE ferrous fumarate 325 mg PO DAILY fluocinonide 0.05% topical ibuprofen 800 mg PO Q8H PRN insulin lispro (Humalog KwikPen (U-100) Insulin) 12 units (0.12 mL) subcut TID ketoconazole 2% 1 appl topical DAILY 10 days Lantus Solostar U-100 Insulin (insulin glargine) 44 units (0.44 mL) subcut QPM NS lidocaine 5% 1 patch topical DAILY lisinopril 10 mg PO DAILY metformin 1,000 mg PO BID nystatin 1 appl topical BID omeprazole 40 mg PO DAILY pen needle, diabetic (UltiCare Pen Needle) use as directed QID , ac & HS 4 times a day; Tobacco use date assessed: 05/05/24 Fall risk assessment: No Falls in past year Last assessed Fall Risk: 05/05/24 Dental Screening Dental Screen Date: 05/05/24 Did you have a dental visit in the last 12 months?: Yes Did you have a dental problem in the last 6 months where you did not have access to dental care?: No Was dental information given to patient?: Patient has dentist HPI Lt eye cataract surgery HPI Details 64-year-old lady with history of diabetes mellitus, hyperlipidemia, hypertension, anemia, obesity, chronic GERD, here today for preoperative exam for left eye cataract surgery with stent on 06/04/2024. She has been taking her medications as directed, but admits to not being very compliant with her diet , and states that she has not been exercising regularly this past winter. Her latest labs showed hemoglobin A1c at 8.4%, with a fasting lipid panel within normal limits and presence of anemia. She states that she has been feeling well, with no other complaints other than blurred vision. 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 Daughter No problems noted. Social History Housing: House Alcohol intake: current Alcohol intake frequency: holidays/special occasions only Alcohol type: wine Patient Tobacco Use Status: Never used Tobacco e-Cigarette/Vaping Use: Never Used Second Hand Smoke Exposure: No Current occupational status: employed Cognitive needs: No Hearing needs: No Vision needs: Yes Questionnaire PHQ-9 Over the last 2 weeks, how often have you been bothered by any of the following problems? 1. Little interest or pleasure in doing things: not at all 2. Feeling down, depressed, or hopeless: not at all 3. Trouble falling or staying asleep, or sleeping too much: not at all 4. Feeling tired or having little energy: not at all 5. Poor appetite or overeating: not at all 6. Feeling bad about yourself - or that you are a failure or have let yourself or your family down: not at all 7. Trouble concentrating on things, such as reading the newspaper or watching television: not at all 8. Moving or speaking so slowly that other people could have noticed. Or the opposite - being so fidgety or restless that you have been moving around a lot more than usual: not at all 9. Thoughts that you would be better off or of hurting yourself in some way: not at all Total score: 0 Depression Screening Interpretation: Negative Depression Screening Done: Yes 36902 - PHQ-9 Billing: Yes Source: Developed by Drs. Shankar Childress, Ruth Blank, Augustin Melara and colleagues, with an educational michelle from [employer]. Thrive Questionnaire Date Thrive assessed: 05/05/24 I am a: Patient What is your living situation today?: I have a steady place to live Within the past 12 months, did the food you bought not last and you didn't have the money to get more?: Never true Within the past 12 months, did you worry whether your food would run out before you got money to buy more?: Never true Do you have trouble paying for medicines?: No Do you have trouble getting transportation to medical appointments?: No Do you have trouble paying your heating and electricity bill?: No Do you have trouble taking care of your child, family member or friend?: No Do you have trouble with day-to-day activities such as bathing, preparing meals, shopping, managing finances, etc.?: No Are you currently unemployed and looking for a job?: I choose not to answer this question Are you interested in more education?: I choose not to answer this question Please select the resources that you would like help with: None Currently or been in a relationship where the following occur: I choose not to answer THRIVE Score: 0 AUDIT C Alcohol Use Questionnaire (AUDIT-C) 1. How often do you have a drink containing alcohol?: Never Total Score: 0 KINGSTON-7 AMB Questionnaire KINGSTON-7 Date KINGSTON - 7 assessed: 05/05/24 Feeling nervous, anxious, or on edge: 0 = Not at all Not being able to stop or control worryin = Not at all Worrying too much about different things: 0 = Not at all Trouble relaxin = Not at all Being so restless that it is hard to sit still: 0 = Not at all Becoming easily annoyed or irritable: 0 = Not at all Feeling afraid as if something awful might happen: 0 = Not at all Total KINGSTON-7 score (0-4 normal; 5-9 mild; 10-14 moderate; 15-21 severe): 0 Source: Developed by Drs. Shankar Childress, Ruth Blank, Augustin Melara and colleagues, with an educational michelle from [employer]. KINGSTON-7 Assessment Billing KINGSTON-7 Assessment Tool: KINGSTON-7 Assessment 77497 Review of Systems Const Denies fatigue, Denies headache(s) and Denies malaise Eyes Details: Up-to-date with her diabetes retinopathy screening, done earlier this year ENT Denies headache(s) and Denies sore throat Card Denies chest pain, Denies irregular heart rhythm, Denies palpitations and Denies dyspnea Resp Denies cough and Denies dyspnea GI Denies constipation and Denies diarrhea Denies urinary frequency and Denies dysuria Musc Denies muscle cramps, Denies muscle weakness, Denies numbness and Denies tingling Neuro Denies burning sensations, Denies headache(s), Denies numbness, Denies tingling and Denies paresthesias Psych Reports no additional complaints Endo Denies fatigue, Denies polydipsia, Denies polyuria and Denies palpitations Radames/Lymph Reports no additional complaints Aller/Immun Reports no additional complaints Physical exam (Primary Care) Vital Signs: Last Vital Signs Temp 98.1 F 05/05/24 10:46 Pulse 66 05/05/24 10:46 Resp 16 05/05/24 10:46 BP 132/72 05/05/24 10:46 Pulse Ox 96 05/05/24 10:46 Oxygen Delivery Method Room Air 05/05/24 10:46 BMI result Body Mass Index 30.3 Tobacco/Smoking Status: Tobacco use Status Tobacco use date assessed 05/05/24 05/05/24 10:47 Patient Tobacco Use Status Never used Tobacco 05/05/24 10:46 e-Cigarette/Vaping Use Never Used 05/05/24 10:46 PHQ-9: PHQ-9 Score PHQ-9: Total score 0 05/05/24 11:40 Depression Screening Interpretation: Negative Thrive Assessment: Date of Thrive Assessment Date Thrive assessed 05/05/24 05/05/24 10:47 Currently or been in a relationship where the following occur: I choose not to answer Const General: no acute distress Nutritional Appearance: obese Orientation/consciousness: patient oriented x3 HENMT Ears: external ears normal General nose exam: Normal external nose present Mouth: oropharynx normal and moist mucous membranes Eyes General: appearance normal, both eyes and all related structures Conjunctivae: conjunctivae normal Pupils: Equal, round and reactive pupils present EOM: EOMs intact bilaterally Neck Neck: Yes full ROM, Yes no lymphadenopathy and Yes supple Resp Effort & Inspection: normal respiratory effort and able to speak in complete sentences Auscultation: clear to auscultation bilaterally Cardio Rate: regular rate Rhythm: regular rhythm Heart sounds: S1 normal heart sound present and S2 normal heart sound present GI Inspection: Yes normal to inspection Palpation (GI): Soft to palpation, nontender and no masses Auscultation: normal bowel sounds General: Yes no CVA tenderness Back/Spine/Pelvis Back: no CVA tenderness Skin General skin exam: no rashes or lesions noted Neuro General: patient oriented x3, gait normal, tone normal, moves all extremities, Normal light touch and pain sensation and no focal motor deficits Cranial nerves: Yes Equal, round and reactive pupils present Cognition (Neuro): normal cognition Gait exam (Neuro): Normal gait present Motor exam (neuro): 5/5 motor strength present throughout Extrem General: Yes normal to inspection, Yes full ROM, Yes no joint enlargement, Yes no clubbing, cyanosis or edema and Yes normal gait Psych Appearance: grossly normal and well kempt Mental Status: mental status grossly normal Speech and movement: Normal speech and movement present Affect: normal affect Results Reviewed Results Reviewed: Name: Hui Franco Age/Sex: 64/F : 1960 Unit#: [id number] Attend Dr: Kim Reynoso MD Re05/05/24 Status: DEP [facility] Disch: SPEC : [id number] RENETTA: 05/05/24 STATUS: COMP REQ : [id number] RECD: 05/05/[address]: Kim Reynoso MD COMP: 05/05/24 ENTERED: 05/05/[address] [facility] [address]: ORDERED: CBC Auto Diff Test Result Flag Reference WBC 8.4 4.8-10.8 X10*3/uL RBC 4.31 4.20-5.50 X10*6/uL HGB 10.6 L 12.0-16.0 g/dl HCT 34.7 L 37.0-47.0 % MCV 80.5 80.0-98.0 fL MCH 24.6 L 27.0-33.0 pg MCHC 30.5 L 31.0-35.0 g/dl RDW 17.0 H 11.0-16.0 % PLT 352 160-400 X10*3/uL MPV 9.8 9.4-12.3 fL Neut Pct Auto 67.4 45-73 % ImGran Pct Auto 0.1 0.0-0.4 % Lymp Pct Auto 26.5 20-40 % Gregory Pct Auto 4.4 2-11 % Eos Pct Auto 1.0 0-4 % Baso Pct Auto 0.6 0-2 % NRBC Pct Auto 0.0 0.0-0.2 /100WBC ANC Neut Abs # 5.7 2.0-8.3 x10*3/uL ImGran Abs Auto 0.01 0.00-0.03 X10*3/uL Lymph Abs Auto 2.2 1.2-4.9 X10*3/uL Gregory Abs Auto 0.4 0.1-1.2 X10*3/uL Eos Abs Auto 0.1 0.0-0.4 X10*3/uL Baso Abs Auto 0.1 0.0-0.2 X10*3/uL NRBC Abs Auto 0.000 0.0-0.012 X10*3/uL Name: Hui Franco Age/Sex: 64/F : 1960 Unit#: [id number] Attend Dr: Kim Reynoso MD Re05/05/24 Status: DEP REF Location: [facility] Disch: SPEC : [id number] RENETTA: 05/05/24 STATUS: COMP REQ : [id number] RECD: 03/24/25-[address]: Kim Reynoso MD COMP: 05/05/24-1409 ENTERED: 05/05/24-[address] [facility] [address]: ORDERED: IRON PROF, AST, ALT, Lipid Panel, Vitamin D 25-OH Test Result Flag Reference Iron 30 30-160 mcg/dL TIBC 352 228-428 mcg/dL Saturation 9 L 15-50 % UIBC 322 ug/dL AST (GOT) 30 5-31 U/L ALT (GPT) 18 0-31 U/L Triglyceride 80 <150 mg/dL Desirable Triglyceride: less than 150 mg/dL Borderline High Triglyceride 150-199 mg/dL High Triglyceride: 200-499 mg/dL Very High Triglyceride: greater than or equal to 5OO mg/dL Cholesterol 105 <200 mg/dL Desirable Cholesterol: less than 200 mg/dL Borderline High Cholesterol: 200-239 mg/dL High Cholesterol: greater than 239 mg/dL LDL Calculated 55 <100 mg/dL Desirable LDL: less than 100 mg/dL Near Optimal/Above Optimal LDL: 110-129 mg/dL Borderline High LDL: 130-159 mg/dL High LDL: 160-189 mg/dL Very High LDL: greater than or equal to 190 mg/dL HDL 34 L >40 mg/dL Desirable HDL: greater than 40 mg/dL Note: This HDL assay may give artificially low results in patients with liver disease. Vitamin D 25-OH 41.6 >30 ng/mL Health Based Reference Values* < 20 ng/mL Deficient 20-30 ng/mL Insufficient > 30 ng/mL Sufficient Laboratory Tests 01/30/24 05/05/24 10:05 09:50 Estimat Average Glucose 203 194 Hemoglobin A1c % 8.7 H 8.4 H % Saturation 9 L Unsat Iron Binding 322 AST 30 ALT 18 Laboratory Tests 05/05/24 09:55 Urine Creatinine 55.06 Urine Microalbumin < 5.0 Microalb/Creat Ratio TNP Coding Level of Care Code Est Pt Level 5 (82961) Complex EM visit Add On G2211 Diagnoses Preoperative examination Z01.818 Type 2 diabetes mellitus with both eyes affected by moderate nonproliferative retinopathy without macular edema, with long-term current use of insulin E11.3393; Z79.4 Diabetes mellitus type: type 2 Diabetes mellitus assistant terminal manager insulin use: with retirement use Diabetic retinopathy severity: with moderate nonproliferative retinopathy Diabetes mellitus macular edema: without macular edema Hypertension, unspecified type I10 Hypertension type: unspecified Hyperlipidemia, unspecified hyperlipidemia type E78.5 Hyperlipidemia type: unspecified Obesity (BMI 30.0-34.9) E66.9 GERD (gastroesophageal reflux disease) K21.9 Anemia D64.9 Additional Codes KINGSTON-7 Assessment Billing - KINGSTON-7 Assessment Tool: KINGSTON-7 Assessment 73946 ([id number]) PHQ-9 - 19380 - PHQ-9 Billing: Yes ([id number]) Assessment & Plan Assessment & Plan (1) Preoperative examination: Code(s): Z01.818 - Encounter for other preprocedural examination Plan: 64-year-old lady with history of diabetes mellitus, obesity, hyperlipidemia, anemia, GERD, here today for preoperative examination for cataract surgery with stent placement on 05/01/2024, requested by Dr. Mclaughlin. She has mild anemia currently on iron supplements, and on atorvastatin for treatment of hyperlipidemia as well as lisinopril for her hypertension which is stable and controlled. Her diabetes mellitus however is not well controlled with a hemoglobin A1c now at 8.2%. She was continued on metformin, Humalog and insulin lispro as well as started on wegovy at 0.25 mg injected once a week . Preoperative exam is unremarkable. Patient advised to not take her dose of Wegovy a week before her planned surgery, and half her dose of Lantus the day before. 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 Continued on metformin a 1000 mg 1 tablet twice a day with meals. Continue Lantus 44 units at night, Humalog 12 units 3 times a day, and started on Wegovy 2.5 mg injected subcutaneously once a week. Check fasting glucose before meals and keep a record of the readings Reinforced diabetic diet and regular exercise with patient. He is up-to-date with her yearly diabetes retinopathy screening. Patient advised to inspect feet daily, for any signs of injury, callus or infection. Compliance with diet and regular exercise again stressed. Blood pressure goal is less than 130/80, goal LDL is less than 100 and goal hemoglobin A1c is less than 7% follow-up appointment made in-2--months (3) HTN (hypertension): Code(s): I10 - Essential (primary) hypertension Category: Medical Qualifiers: Hypertension type: unspecified Qualified Code(s): I10 - Essential (primary) hypertension Plan: Blood pressure stable and controlled on present treatment, continued on lisinopril 10 mg daily (4) HLD (hyperlipidemia): Code(s): E78.5 - Hyperlipidemia, unspecified Category: Medical Qualifiers: Hyperlipidemia type: unspecified Qualified Code(s): E78.5 - Hyperlipidemia, unspecified Plan: Reviewed recent fasting lipid profile with patient with levels within normal limits . Continue atorvastatin 40 mg daily , in addition to adherence to low-cholesterol diet and regular exercise, at least 30 minutes 3 to 4 times a week. Advised patient to make healthy food choices, eat more fruits, vegetables, whole grains, wild caught fish and low-fat dairy. Limit amount of meat and fried or fatty food products, as well as processed foods and fast foods. (5) Obesity (BMI 30.0-34.9): Code(s): E66.9 - Obesity, unspecified Category: Medical Plan: Started on Wegovy 0.25 mg injected once a week cutaneously. Patient education given on how to properly use the medication and what to expect with regards to possible side effects from taking it. Advised to eat a bland diet on the day that she gives herself her injection. Will see her back for follow-up in 2 months (6) GERD (gastroesophageal reflux disease): Code(s): K21.9 - Gastro-esophageal reflux disease without esophagitis Category: Medical Plan: Continue omeprazole (7) Anemia: Code(s): D64.9 - Anemia, unspecified Category: Medical Plan: Continue ferrous fumarate 325 mg taken once a day. Medications: New Wegovy (semaglutide (weight loss)) administer weeks 1 through 4 of therapy 0.25 mg (0.5 mL) subcut QWEEK 2 mL 3RF NS E11.319 - Type 2 diabetes mellitus with unspecified diabetic retinopathy without macular edema, E11.65 - Type 2 diabetes mellitus with hyperglycemia, E66.9 - Obesity, unspecified, E78.5 - Hyperlipidemia, unspecified, I10 - Essential (primary) hypertension, K21.9 - Gastro-esophageal reflux disease without esophagitis, Z79.4 - assistant terminal manager (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 of insulin
[2024-05-05 10:46] VITALS: BP 132/72; PULSE 66; RESP 16; TEMP 36.7; O2SAT 96; BMI 30.3
== END 2024-05-05 12:48 | disposition home or self-care (01) ==
LOC: HO.HMCC 10:08
PROVIDERS: PCP Internal Medicine; Visit Provider Internal Medicine
DX: E11.3393 Type 2 diabetes mellitus with moderate nonproliferative diabetic retinopathy without macular edema, bilateral (principal); Z79.4 Long term (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 of insulin; Z68.30 Body mass index [BMI] 30.0-30.9, adult; E66.9 Obesity, unspecified; Z01.818 Encounter for other preprocedural examination; I10 Essential (primary) hypertension; E78.5 Hyperlipidemia, unspecified; K21.9 Gastro-esophageal reflux disease without esophagitis; D64.9 Anemia, unspecified

== ENCOUNTER → 2024-07-23 12:15 | Outpatient (BNV) | payer OTHER, SELFPAY | PROVIDERS: PCP Internal Medicine; Visit Provider Internal Medicine | DX: Z12.31 Encounter for screening mammogram for malignant neoplasm of breast (principal) | CPT/HCPCS: 77063; 77067 ==

== ENCOUNTER 2024-07-23 12:42 | Outpatient (REF) | payer OTHER, SELFPAY | END 2024-07-23 12:43 | disposition home or self-care (01) | LOC: HO.MAMMO 12:42 | PROVIDERS: PCP Internal Medicine; Visit Provider Internal Medicine | DX: Z12.31 Encounter for screening mammogram for malignant neoplasm of breast (principal) | CPT/HCPCS: 77063; 77067 ==

== ENCOUNTER 2024-11-26 14:31 | Outpatient (AMB) | payer OTHER, SELFPAY ==
--- NOTE | 2024-11-26 14:59 | A.OFFVIS_ITS ---
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 Meeting Coordinator concerns: none. Currently not sexually active in years. Denies any vaginal dryness or irritation. STI testing offered; she declines. Attempting to eat a healthy diet with calcium and vitamin D and stays active with exercise. Last pap smear; 2023, negative. Last mammogram; 2024. Colonoscopy is UTD. Denies any family history of breast, ovarian or colon cancer. 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 Daughter No problems noted. Social History Housing: House Alcohol intake: current Alcohol intake frequency: holidays/special occasions only Alcohol type: wine Patient Tobacco Use Status: Never used Tobacco e-Cigarette/Vaping Use: Never Used Second Hand Smoke Exposure: No Current occupational status: employed Cognitive needs: No Hearing needs: No Vision needs: Yes Female Reproductive History Menstrual Total pregnancies: 3 Full term: 2 Number of Living Children: 2 Ectopics: 1 Date of last pap smear: 03/15/23 (neg pap and hpv) Date of Mammogram: 07/23/24 ([facility] 2) Review of Systems Const All systems reviewed & are unremarkable except as noted in HPI and below Reports as per HPI Eyes Reports no additional complaints ENT Reports no additional complaints Card Reports no additional complaints Resp Reports no additional complaints GI Reports as per HPI and Reports no additional complaints Reports as per HPI Musc Reports no additional complaints Skin/Breast Reports as per HPI Neuro Reports no additional complaints Psych Reports no additional complaints Endo Reports no additional complaints Radames/Lymph Reports no additional complaints Aller/Immun Reports no additional complaints Physical Exam Vital Signs: Last Vital Signs BP 124/70 11/26/24 15:00 BMI result Body Mass Index 30.6 Const General: cooperative, healthy appearing, no acute distress, well developed and alert Orientation/consciousness: patient oriented x3 HEENT Head: Yes normal to inspection Eyes General: appearance normal, both eyes and all related structures Neck Neck: Yes normal visual inspection Thyroid: Thyroid normal Chest Chest palpation & inspection: normal inspection of the chest and other (no puckering, dimpling, peau de orange, retraction, discharge, masses) Breast/axilla inspection: normal inspection of the breasts Breast/axilla palpation: normal palpation of the breasts Resp Effort & Inspection: normal respiratory effort GI Inspection: Yes normal to inspection and Yes scar Palpation (GI): Soft to palpation Rectal Exam - Female: deferred General: Yes bladder normal to palpation External Female Exam: normal external appearance and normal appearance of the urethra Speculum Exam - Vagina: normal appearance of the vagina, normal palpation and normal vaginal discharge Speculum Exam - Cervix: normal appearance of the cervix and normal palpation Bimanual exam- vagina & uterus: normal bimanual exam, normal palpation, uterine size normal, bladder normal to palpation, normal palpation and non-tender Bimanual Exam- Adnexa, other: no masses Skin General skin exam: no rashes or lesions noted Rashes: no rashes Neuro General: patient oriented x3 Cognition (Neuro): normal cognition Extrem General: Yes normal to inspection Psych Attitude: cooperative Thought process: Normal thought process present Assessment & Plan Assessment & Plan (1) Encounter for well woman exam with routine gynecological exam: Code(s): Z01.419 - Encounter for gynecological examination (general) (routine) without abnormal findings Plan Discussed: Current recommendations for pap smears per ASCCP guidelines. Breast awareness, periodic self breast exams and yearly mammogram. Maintain a healthy lifestyle, well balanced diet including Calcium 1,200 mg and Vitamin D 600 IU daily, and routine exercise. Use of condoms for STI prevention if indicated. Contact the office with any postmenopausal bleeding. Patient verbalizes understanding and agrees to the plan of care. She was given opportunity to ask questions and all questions were answered to the best of my ability. RTO in 1 year for annual fisheries technician exam. This note is constructed using voice recognition software. While every effort has been made to ensure accuracy, delivery truck driver errors may have been included. Coding Level of Care Code Est Pt Prev Care 40-64y(08822) Diagnoses Encounter for well woman exam with routine gynecological exam Z01.419
[2024-11-26 15:00] VITALS: BP 124/70; BMI 30.6
--- OUTSIDE RECORDS SUMMARY | 2024-11-26 18:13 | XMS_ITS | Patient Health Record ---
Author Organization [facility] Address [address] [place] [address] Care Team Providers Care Venture Capitalist Name Role Phone Ailyn(inactive) Ashish BECERRA Primary Care Provider U Lester Weller Jr Unavailable CLARISA ZARAGOZA Unavailable Unavailable Reason For Referral No Information Medications Medication SIG (Take, Route, Frequency, Duration) Notes Start Date End Date Status Simvastatin 20 MG 1 tablet in the even ing Orally Once a day Active glipiZIDE Active Colyte with Flavor Packs 240 GM As directed Orally Over the specified time.; Duration: 1 day(s) 08/12/2014 Active metFORMIN HCl 500 MG 1 tablet with meals Orally Twice a day Active Problems Problem Type SNOMED Code ICD Code Onset Dates Problem Status W/U Status Risk Notes Problem Long-term current use of drug therapy (352552802) Encounter for long-term (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 of other medications (V58.69) Active confirmed Problem Screening for malignant neoplasm of colon (734928933) Special screening for malignant neoplasms, colon (V76.51) Active confirmed Plan Of Treatment Future Test Test Name Order Date COLONOSCOPY 08/12/2014 Insurance Providers Payer Name Payer Address Payer Phone Subscriber Number Group Number Insured Name Patient Relationship to Insured Coverage Start Date Coverage End Date [facility] [employer] Plan [address] [address] [place], [place] [id number] AUDRA SHANNON Self - patient is the insured MEDICAID OF [employer] [address] [place] [address] [id number] AUDRA SHANNON Self - patient is the insured Medical (General) History Medical History History ICD Code diabetes mellitus elevated cholesterol Surgical History Surgery Date(Month/Year) breast biopsy -right section X 2
== END 2024-11-27 09:25 | disposition home or self-care (01) ==
LOC: HO.HWS 14:31
PROVIDERS: PCP Internal Medicine; Visit Provider Advanced Practice Midwife
DX: Z01.419 Encounter for gynecological examination (general) (routine) without abnormal findings (principal)
CPT/HCPCS: 99396; 99459

== ENCOUNTER → 2024-11-26 14:31 | Outpatient (BNVA) | payer OTHER, SELFPAY | PROVIDERS: PCP Internal Medicine; Visit Provider Advanced Practice Midwife | DX: Z01.419 Encounter for gynecological examination (general) (routine) without abnormal findings (principal) | CPT/HCPCS: 99396 ==

== ENCOUNTER 2024-12-10 08:20 | Outpatient (REF) | payer OTHER, SELFPAY ==
[2024-12-10 09:57] LABS: MANUAL DIFF FLAG NO
[2024-12-10 10:10] LABS: Hematocrit 35.5 % (37.0-47.0); Hemoglobin 10.5 g/dl (12.0-16.0); Imm Gran Abs Auto 0.02 X10*3/uL (0.00-0.03); Imm Gran Pct Auto 0.2 % (0.0-0.4); Lymphocytes Absolute Auto 3.1 X10*3/uL (1.2-4.9); Mean Corpuscular HGB Conc 29.6 g/dl (31.0-35.0); Mean Corpuscular Hemoglobin 24.5 pg (27.0-33.0); Mean Corpuscular Volume 82.8 fL (80.0-98.0); NRBC Abs Auto 0.000 X10*3/uL (0.0-0.012); NRBC Pct Auto 0.0 /100WBC (0.0-0.2); Platelet Count 352 X10*3/uL (160-400); Red Blood Count 4.29 X10*6/uL (4.20-5.50); White Blood Count 8.5 X10*3/uL (4.8-10.8)
[2024-12-10 10:31] LABS: Alanine Aminotransferase 19 U/L (0-31); Anion Gap 13 (12-20); Aspartate Amino Transferase 23 U/L (5-31); Blood Urea Nitrogen 13 mg/dL (9-16); Calcium 9.9 mg/dL (8.4-10.2); Carbon Dioxide 29 mmol/L (22-29); Chloride 104 mmol/L (96-108); Cholesterol 160 mg/dL (<200); Estimated Glomerular Filt Rate > 60; HDL Cholesterol 36 mg/dL (>40); Iron 38 mcg/dL (30-160); Percent Iron Saturation 11 % (15-50); Potassium 3.6 mmol/L (3.3-5.1); Sodium 142 mmol/L (135-145); Total Iron Binding Capacity 358 mcg/dL (228-428); Triglycerides 179 mg/dL (<150); Unsaturated Iron Binding 320 ug/dL
[2024-12-10 11:00] LABS: Ferritin 18 ng/mL (10-250)
== END 2024-12-10 08:21 | disposition home or self-care (01) ==
LOC: HO.HMGCLDS 08:20
PROVIDERS: PCP Internal Medicine; Visit Provider Internal Medicine
DX: Z00.01 Encounter for general adult medical examination with abnormal findings (principal); E11.65 Type 2 diabetes mellitus with hyperglycemia; E11.29 Type 2 diabetes mellitus with other diabetic kidney complication; E11.3393 Type 2 diabetes mellitus with moderate nonproliferative diabetic retinopathy without macular edema, bilateral; R80.9 Proteinuria, unspecified; I10 Essential (primary) hypertension; E78.5 Hyperlipidemia, unspecified; E66.9 Obesity, unspecified; K21.9 Gastro-esophageal reflux disease without esophagitis; D64.9 Anemia, unspecified; R21 Rash and other nonspecific skin eruption; Z79.84 Long term (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 of oral hypoglycemic drugs; Z23 Encounter for immunization; Z79.4 Long term (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 of insulin
CPT/HCPCS: 36415; 80048; 80061; 82043; 82306; 82570; 82728; 83036; 83540; 84450; 84460; 85025; 90471; 90656; 99396

== ENCOUNTER 2024-12-10 08:41 | Outpatient (AMB) | payer OTHER, SELFPAY ==
--- NOTE | 2024-12-10 08:47 | A.OFFPC_ITS ---
Vital Signs 12/10/24 08:48 Height 5 ft 8 in Weight 194 lb BMI 29.5 BP 130/80 Blood Pressure Location Rt brachial Position Sitting Respiration 16 Pulse 68 Pulse Source Pulse Oximeter Temp 97.7 F Temp Source Oral Pulse Oximetry (%) 99 Oxygen Delivery Method Room Air Intake Visit Reasons: PE Intake Note: Pt is here today for her PE: last mammogram 07/23/24, papsmear 03/16/23, colonoscopy 12/16/14 Configuration Technician Required: No Allergies No Known Allergies Allergy (Verified 12/10/24 09:11) Medication List - Last Reconciled 12/10/24 by Kim Reynoso MD atorvastatin 40 mg PO DAILY blood sugar diagnostic (FreeStyle Lite Strips) USE DIRECTED TO TEST BLOOD SUGAR 3X/DAY blood-glucose meter (FreeStyle [place] Lite kit) As directed to test blood sugar 3x/day blood-glucose sensor (FreeStyle Kwesi 3 Sensor device) As directed blood-glucose,bulk receiver,cont (FreeStyle Kwesi 3 [place]) As directed ferrous fumarate 325 mg PO DAILY fluocinonide 0.05% topical ibuprofen 800 mg PO Q8H PRN insulin lispro (Humalog KwikPen (U-100) Insulin) 12 units (0.12 mL) subcut TID ketoconazole 2% 1 appl topical DAILY 10 days Lantus Solostar U-100 Insulin (insulin glargine) 44 units (0.44 mL) subcut QPM NS lidocaine 5% 1 patch topical DAILY lisinopril 10 mg PO DAILY metformin 1,000 mg PO BID 1 week nystatin 1 appl topical BID omeprazole 40 mg PO DAILY pen needle, diabetic (UltiCare Pen Needle) use as directed QID , ac & HS 4 times a day; Tobacco use date assessed: 12/10/24 Last assessed Fall Risk: 12/10/24 Dental Screening Dental Screen Date: 12/10/24 Did you have a dental visit in the last 12 months?: Yes Did you have a dental problem in the last 6 months where you did not have access to dental care?: No Was dental information given to patient?: Patient has dentist [facility] Medical History Anemia Obesity (BMI 30.0-34.9) Goiter HLD (hyperlipidemia) HTN (hypertension) Groin rash 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 Daughter No problems noted. Social History Housing: House Alcohol intake: current Alcohol intake frequency: holidays/special occasions only Alcohol type: wine Patient Tobacco Use Status: Never used Tobacco e-Cigarette/Vaping Use: Never Used Second Hand Smoke Exposure: No Current occupational status: employed Cognitive needs: No Hearing needs: No Vision needs: Yes Questionnaire PHQ-9 Over the last 2 weeks, how often have you been bothered by any of the following problems? 1. Little interest or pleasure in doing things: not at all 2. Feeling down, depressed, or hopeless: not at all 3. Trouble falling or staying asleep, or sleeping too much: not at all 4. Feeling tired or having little energy: not at all 5. Poor appetite or overeating: not at all 6. Feeling bad about yourself - or that you are a failure or have let yourself or your family down: not at all 7. Trouble concentrating on things, such as reading the newspaper or watching television: not at all 8. Moving or speaking so slowly that other people could have noticed. Or the opposite - being so fidgety or restless that you have been moving around a lot more than usual: not at all 9. Thoughts that you would be better off or of hurting yourself in some way: not at all Total score: 0 Depression Screening Interpretation: Negative Depression Screening Done: Yes Source: Developed by Drs. Shankar Childress, Ruth Blank, Augustin Melara and colleagues, with an educational michelle from [employer]. Thrive Questionnaire Date Thrive assessed: 05/05/24 I am a: Patient What is your living situation today?: I have a steady place to live Within the past 12 months, did the food you bought not last and you didn't have the money to get more?: Never true Within the past 12 months, did you worry whether your food would run out before you got money to buy more?: Never true Do you have trouble paying for medicines?: No Do you have trouble getting transportation to medical appointments?: No Do you have trouble paying your heating and electricity bill?: No Do you have trouble taking care of your child, family member or friend?: No Do you have trouble with day-to-day activities such as bathing, preparing meals, shopping, managing finances, etc.?: No Are you currently unemployed and looking for a job?: I choose not to answer this question Are you interested in more education?: I choose not to answer this question Please select the resources that you would like help with: None Currently or been in a relationship where the following occur: I choose not to answer THRIVE Score: 0 AUDIT C Alcohol Use Questionnaire (AUDIT-C) 1. How often do you have a drink containing alcohol?: Never Total Score: 0 KINGSTON-7 AMB Questionnaire KINGSTON-7 Date KINGSTON - 7 assessed: 05/05/24 Feeling nervous, anxious, or on edge: 0 = Not at all Not being able to stop or control worryin = Not at all Worrying too much about different things: 0 = Not at all Trouble relaxin = Not at all Being so restless that it is hard to sit still: 0 = Not at all Becoming easily annoyed or irritable: 0 = Not at all Feeling afraid as if something awful might happen: 0 = Not at all Total KINGSTON-7 score (0-4 normal; 5-9 mild; 10-14 moderate; 15-21 severe): 0 Source: Developed by Drs. Shankar Childress, Ruth Blank, Augustin Melara and colleagues, with an educational michelle from [employer]. Physical exam (Primary Care) Vital Signs: Last Vital Signs Temp 97.7 F 12/10/24 08:48 Pulse 68 12/10/24 08:48 Resp 16 12/10/24 08:48 BP 130/80 12/10/24 08:48 Pulse Ox 99 12/10/24 08:48 Oxygen Delivery Method Room Air 12/10/24 08:48 BMI result Body Mass Index 29.5 Tobacco/Smoking Status: Tobacco use Status Tobacco use date assessed 12/10/24 12/10/24 08:51 Patient Tobacco Use Status Never used Tobacco 12/10/24 08:47 e-Cigarette/Vaping Use Never Used 12/10/24 08:47 PHQ-9: PHQ-9 Score PHQ-9: Total score 0 12/10/24 09:12 Depression Screening Interpretation: Negative Thrive Assessment: Date of Thrive Assessment Date Thrive assessed 05/05/24 12/10/24 08:47 Currently or been in a relationship where the following occur: I choose not to answer Office Procedures Flu Questionnaire Does the patient have a severe egg allergy?: No Does the patient have severe life threatening allergies?: No Does the patient have a fever or illness today?: No Has the patient ever had Guillain-Sula Syndrome?: No Has the patient ever had any past reaction to a flu shot?: No Immunizations Fluarix 3571-1381 (PF) 45 mcg (15 mcg x 3)/0.5 mL IM syringe Performing Provider: Kim Reynoso MD Performing Location: [facility] Administered by: Jessica Coppola CMA on 12/10/24 09:04 Dose Route Admin Location Dispensed Lot Number Expiration Date [facility] Design Sales Consultant 0.5 mL IM Left Deltoid 0.5 mL 2CASM 08/11/25 [id number] [employer] VIS Given Date VIS Provided VIS Publication Date 12/10/24 Single Vaccine 24 Eligibility Eligibility Date Funding Source Not [facility] Eligible 12/10/24 Private Coding Level of Care Code Est Pt Prev Care 40-64y(17493) Diagnoses Type 2 diabetes mellitus with hyperglycemia, with long-term current use of insulin E11.65; Z79.4 Diabetes mellitus type: type 2 Diabetes mellitus with microalbuminuria, with long-term current use of insulin E11.29; R80.9; Z79.4 Hypertension, unspecified type I10 Hypertension type: unspecified Hyperlipidemia, unspecified hyperlipidemia type E78.5 Hyperlipidemia type: unspecified Obesity (BMI 30.0-34.9) E66.9 GERD (gastroesophageal reflux disease) K21.9 Encounter for screening for malignant neoplasm of colon Z12.11 Anemia D64.9 Type 2 diabetes mellitus with both eyes affected by moderate nonproliferative retinopathy without macular edema, with long-term current use of insulin E11.3393; Z79.4 Diabetes mellitus type: type 2 Diabetes mellitus half-way insulin use: with watermaster use Diabetic retinopathy severity: with moderate nonproliferative retinopathy Diabetes mellitus macular edema: without macular edema Annual visit for general adult medical examination with abnormal findings Z00.01 Assessment & Plan Assessment & Plan (1) Diabetes mellitus with hyperglycemia, with long-term current use of insulin: Code(s): E11.65 - Type 2 diabetes mellitus with hyperglycemia; Z79.4 - watermaster (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 of insulin Category: Medical Qualifiers: Diabetes mellitus type: type 2 Qualified Code(s): E11.65 - Type 2 diabetes mellitus with hyperglycemia; Z79.4 - shelter (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 of insulin (2) Diabetes mellitus with microalbuminuria, with long-term current use of insulin: Code(s): E11.29 - Type 2 diabetes mellitus with other diabetic kidney complication; R80.9 - Proteinuria, unspecified; Z79.4 - watermaster (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 of insulin Category: Medical (3) HTN (hypertension): Code(s): I10 - Essential (primary) hypertension Category: Medical Qualifiers: Hypertension type: unspecified Qualified Code(s): I10 - Essential (primary) hypertension Plan: Blood pressure at goal of less than 130/80. Continue with current medication. Reinforced importance of following a low sodium diet, getting regular exercise, and lowering stress levels. (4) HLD (hyperlipidemia): Code(s): E78.5 - Hyperlipidemia, unspecified Category: Medical Qualifiers: Hyperlipidemia type: unspecified Qualified Code(s): E78.5 - Hyperlipidemia, unspecified Plan: Fasting lipids already drawn this morning, results still pending. Currently on atorvastatin 40 mg daily (5) Obesity (BMI 30.0-34.9): Code(s): E66.9 - Obesity, unspecified Category: Medical Plan: Discussed need to increase activity and weight reduction. Recommended focusing on improving health instead of dieting. Mediterranean diet is a healthy diet that helps, limit food high in fat, sugar, and calories. Eat slowly, pay attention to portion sizes, plan your meals ahead of time, start regular physical activity, at least 150 minutes of moderate intensity exercise, or 90 minutes per week of vigorous exercise. (6) GERD (gastroesophageal reflux disease): Code(s): K21.9 - Gastro-esophageal reflux disease without esophagitis Category: Medical Plan: Currently on omeprazole 40 mg daily, avoidance of triggers for heartburn disc ussed. Referred to Dr. Jolley for follow-up (7) Encounter for screening for malignant neoplasm of colon: Code(s): Z12.11 - Encounter for screening for malignant neoplasm of colon Plan: Referred to Dr. 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: Code(s): E11.319 - Type 2 diabetes mellitus with unspecified diabetic retinopathy without macular edema Category: Medical Qualifiers: Diabetes mellitus type: type 2 Diabetes mellitus watermaster insulin use: with watermaster use Diabetic retinopathy severity: with moderate nonproliferative retinopathy Diabetes mellitus macular edema: without macular edema Qualified Code(s): E11.3393 - Type 2 diabetes mellitus with moderate nonproliferative diabetic retinopathy without macular edema, bilateral; Z79.4 - watermaster (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 of insulin (10) Annual visit for general adult medical examination with abnormal findings: Code(s): Z00.01 - Encounter for general adult medical examination with abnormal findings Plan: Flu shot given today. Goes to [facility] for her routine eye exam, had cataract surgery earlier this year Orders: Orders Alanine Aminotransferase 03/15/25 D64.9 - Anemia, unspecified, E11.29 - Type 2 diabetes mellitus with other diabetic kidney complication, E11.3393 - Type 2 diabetes mellitus with moderate nonproliferative diabetic retinopathy without macular edema, bilateral, E11.65 - Type 2 diabetes mellitus with hyperglycemia, E66.9 - Obesity, unspecified, E78.5 - Hyperlipidemia, unspecified, I10 - Essential (primary) hypertension, K21.9 - Gastro-esophageal reflux disease without esophagitis, R80.9 - Proteinuria, unspecified, Z79.4 - shelter (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 of insulin Complete Blood Count Auto Diff 03/15/25 D64.9 - Anemia, unspecified, E11.29 - Type 2 diabetes mellitus with other diabetic kidney complication, E11.3393 - Type 2 diabetes mellitus with moderate nonproliferative diabetic retinopathy without macular edema, bilateral, E11.65 - Type 2 diabetes mellitus with hyperglycemia, E66.9 - Obesity, unspecified, E78.5 - Hyperlipidemia, unspecified, I10 - Essential (primary) hypertension, K21.9 - Gastro-esophageal reflux disease without esophagitis, R80.9 - Proteinuria, unspecified, Z79.4 - shelter (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 of insulin IRON PROFILE 03/15/25 D64.9 - Anemia, unspecified, E11.29 - Type 2 diabetes mellitus with other diabetic kidney complication, E11.3393 - Type 2 diabetes mellitus with moderate nonproliferative diabetic retinopathy without macular edema, bilateral, E11.65 - Type 2 diabetes mellitus with hyperglycemia, E66.9 - Obesity, unspecified, E78.5 - Hyperlipidemia, unspecified, I10 - Essential (primary) hypertension, K21.9 - Gastro-esophageal reflux disease without esophagitis, R80.9 - Proteinuria, unspecified, Z79.4 - watermaster (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 of insulin Influenza [id number] Immunization Today Z23 - Encounter for immunization Microalbumin, Random (w Creat) 03/15/25 D64.9 - Anemia, unspecified, E11.29 - Type 2 diabetes mellitus with other diabetic kidney complication, E11.3393 - Type 2 diabetes mellitus with moderate nonproliferative diabetic retinopathy without macular edema, bilateral, E11.65 - Type 2 diabetes mellitus with hyperglycemia, E66.9 - Obesity, unspecified, E78.5 - Hyperlipidemia, unspecified, I10 - Essential (primary) hypertension, K21.9 - Gastro-esophageal reflux disease without esophagitis, R80.9 - Proteinuria, unspecified, Z79.4 - watermaster (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 of insulin Lipid Panel 03/15/25 D64.9 - Anemia, unspecified, E11.29 - Type 2 diabetes mellitus with other diabetic kidney complication, E11.3393 - Type 2 diabetes mellitus with moderate nonproliferative diabetic retinopathy without macular cherri ma, bilateral, E11.65 - Type 2 diabetes mellitus with hyperglycemia, E66.9 - Obesity, unspecified, E78.5 - Hyperlipidemia, unspecified, I10 - Essential (primary) hypertension, K21.9 - Gastro-esophageal reflux disease without esophagitis, R80.9 - Proteinuria, unspecified, Z79.4 - shelter (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 of insulin Basic Metabolic Panel Fasting 03/15/25 D64.9 - Anemia, unspecified, E11.29 - Type 2 diabetes mellitus with other diabetic kidney complication, E11.3393 - Type 2 diabetes mellitus with moderate nonproliferative diabetic retinopathy without macular edema, bilateral, E11.65 - Type 2 diabetes mellitus with hyperglycemia, E66.9 - Obesity, unspecified, E78.5 - Hyperlipidemia, unspecified, I10 - Essential (primary) hypertension, K21.9 - Gastro-esophageal reflux disease without esophagitis, R80.9 - Proteinuria, unspecified, Z79.4 - watermaster (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 of insulin Aspartate Amino Transferase 03/15/25 D64.9 - Anemia, unspecified, E11.29 - Type 2 diabetes mellitus with other diabetic kidney complication, E11.3393 - Type 2 diabetes mellitus with moderate nonproliferative diabetic retinopathy without macular edema, bilateral, E11.65 - Type 2 diabetes mellitus with hyperglycemia, E66.9 - Obesity, unspecified, E78.5 - Hyperlipidemia, unspecified, I10 - Essential (primary) hypertension, K21.9 - Gastro-esophageal reflux disease w ithout esophagitis, R80.9 - Proteinuria, unspecified, Z79.4 - shelter (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 of insulin Ferritin 03/15/25 D64.9 - Anemia, unspecified, E11.29 - Type 2 diabetes rodger itus with other diabetic kidney complication, E11.3393 - Type 2 diabetes mellitus with moderate nonproliferative diabetic retinopathy without macular edema, bilateral, E11.65 - Type 2 diabetes mellitus with hyperglycemia, E66.9 - Obesity, unspecified, E78.5 - Hyperlipidemia, unspecified, I10 - Essential (primary) hypertension, K21.9 - Gastro-esophageal reflux disease without esophagitis, R80.9 - Proteinuria, unspecified, Z79.4 - watermaster (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 of insulin Hemoglobin A1c 03/15/25 E11.29 - Type 2 diabetes mellitus with other diabetic kidney complication, E11.3393 - Type 2 diabetes mellitus with moderate nonproliferative diabetic retinopathy without macular edema, bilateral, E11.65 - Type 2 diabetes mellitus with hyperglycemia, R80.9 - Proteinuria, unspecified, Z79.4 - shelter (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 of insulin Referrals Gastroenterology Referral K21.9 - Gastro-esophageal reflux disease without esophagitis, Z12.11 - Encounter for screening for malignant neoplasm of colon Medications: New Mounjaro (tirzepatide) for 4 weeks 2.5 mg (0.5 mL) subcut QWEEK 2 mL 2RF 30 days NS E11.29 - Type 2 diabetes mellitus with other diabetic kidney complication, E11.65 - Type 2 diabetes mellitus with hyperglycemia, E66.9 - Obesity, unspecified, E78.5 - Hyperlipidemia, unspecified, I10 - Essential (primary) hypertension, R80.9 - Proteinuria, unspecified, Z79.4 - watermaster (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 of insulin Refilled omeprazole 40 mg PO DAILY 90 ea 1RF K21.9 - Gastro-esophageal reflux disease without esophagitis lidocaine 5% leave on most painful area for up to 12 hrs 1 patch topical DAILY 30 ea 0RF ketoconazole 2% 1 appl topical DAILY 60 grams 0RF 10 days R21 - Rash and other nonspecific skin eruption
[2024-12-10 08:48] VITALS: BP 130/80; PULSE 68; RESP 16; TEMP 36.5; O2SAT 99; BMI 29.5
--- OUTSIDE RECORDS SUMMARY | 2024-12-10 09:19 | XMS_ITS | Patient Health Record ---
Author Organization [facility] Address [address] [place] [address] Care Team Providers Care Rayon Winder Name Role Phone Ailyn(inactive) Ashish BECERRA Primary Care Provider U Lester Weller Jr Unavailable [phone] CLARISA ZARAGOZA Unavailable Unavailable Reason For Referral [...] Problem Long-term current use of drug therapy (165454282) Encounter for long-term (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 of other medications (V58.69) Active confirmed Problem Screening for malignant neoplasm of colon (899525933) Special screening for malignant neoplasms, colon (V76.51) Active confirmed Plan Of Treatment Future Test Test Name Order Date COLONOSCOPY 08/12/2014 Insurance Providers Payer Name Payer Address Payer Phone Subscriber Number Group Number Insured Name Patient Relationship to Insured Coverage Start Date Coverage End Date [facility] [employer] Plan [address] [address] [place], [place] [id number] AUDRA SHANNON Self - patient is the insured MEDICAID OF [employer] [address] [place] [address] [id number] AUDRA SHANNON Self - patient is the insured Medical (General) History Medical History History ICD Code diabetes mellitus elevated cholesterol Surgical History Surgery Date(Month/Year) breast biopsy -right section X 2
== END 2024-12-10 09:35 | disposition home or self-care (01) ==
LOC: HO.HMCC 08:42
PROVIDERS: PCP Internal Medicine; Visit Provider Internal Medicine
DX: Z23 Encounter for immunization (principal)